=== PATIENT | female | born 1945 | race Caucasian/White ===

== ENCOUNTER 2018-03-13 11:03 | Emergency (ER) | payer MEDICARE ==
[2018-03-13 11:13] VITALS: TEMP 98.2
[2018-03-13] MEDS ORDERED: SODIUM CHLORIDE 0.9% 1,000 ML IV STA ×2 (11:59)
[2018-03-13] MEDS ORDERED: IPRATROPIUM-ALBUTEROL 3 ML NEB INHALATION STA (12:00)
--- NOTE | 2018-03-13 12:35 | ED ---
Recheck HPI - General Chief Complaint: Recheck/Abnormal Lab/Rx Stated Complaint: High B/P Time Seen by Provider: 03/13/18 11:34 Source: patient, RN notes reviewed, old records reviewed Mode of arrival: wheelchair Limitations: no limitations - History of Present Illness Initial Comments: 73-year-old female presents emergency department sent from primary care physician. Apparently Patient was having an elevated blood pressure on her first visit to new primary care physician. Asians blood pressure is 180/100 at this time. Apparently the office it was 220/120. Patient reports that she has had never seen a primary care physician in the past few years. She reports she does have a history of COPD and is a smoker. She is treated for COPD exacerbation with steroids and antibiotics early last week. She thought she was getting somewhat better. Patient states that she's had no other abnormal symptoms including nausea vomiting. Patient denies any recent fever, chills, shortness of breath, chest pain, back pain, abdominal pain, nausea vomiting, numbness or tingling, dysuria or hematuria, constipation or diarrhea, headaches or visual changes, or any other current symptoms - Related Data Home Medications Medication Instructions Recorded Confirmed Albuterol Inhaler [Ventolin Hfa 1 - 2 puff INHALATION RT-Q6H PRN 03/13/18 Inhaler] Albuterol Nebulized [Ventolin 2.5 mg INHALATION RT-Q6H PRN 03/13/18 03/13/18 Nebulized] Glycopyrrolate/Formoterol Fum 2 puff INHALATION RT-BID 03/13/18 03/13/18 [Bevespi Aerosphere Inhaler] diphenhydrAMINE [Benadryl] 25 mg PO QID PRN 03/13/18 03/13/18 Previous Rx's Medication Instructions Recorded amLODIPine [Norvasc] 5 mg PO DAILY #10 tab 03/13/18 Allergies Allergy/AdvReac Type Severity Reaction Status Date / Time cefuroxime [From Ceftin] AdvReac Nausea & Verified 03/13/18 11:26 Vomiting Review of Systems ROS Statement: Those systems with pertinent positive or pertinent negative responses have been documented in the HPI. ROS Other: All systems not noted in ROS Statement are negative. Past Medical History Past Medical History: No Reported History History of Any Multi-Drug Resistant Organisms: None Reported Past Surgical History: Tonsillectomy Past Psychological History: No Psychological Hx Reported Smoking Status: Current every day smoker Past Alcohol Use History: None Reported Past Drug Use History: None Reported General Exam - General Exam Comments Initial Comments: This is a 73-year-old female. Alert and oriented. No significant distress. Limitations: no limitations General appearance: alert, in no apparent distress Head exam: Present: atraumatic, normocephalic, normal inspection Eye exam: Present: normal appearance, PERRL, EOMI. Absent: scleral icterus, conjunctival injection, periorbital swelling ENT exam: Present: normal exam, mucous membranes moist Neck exam: Present: normal inspection. Absent: tenderness, meningismus, lymphadenopathy Respiratory exam: Present: wheezes (Patient has some bilateral wheezing.). Absent: normal lung sounds bilaterally, respiratory distress, rales, rhonchi, stridor Cardiovascular Exam: Present: regular rate, normal rhythm, normal heart sounds. Absent: systolic murmur, diastolic murmur, rubs, gallop, clicks GI/Abdominal exam: Present: soft, normal bowel sounds. Absent: distended, tenderness, guarding, rebound, rigid Extremities exam: Present: normal inspection, full ROM, normal capillary refill. Absent: tenderness, pedal edema, joint swelling, calf tenderness Back exam: Present: normal inspection Neurological exam: Present: alert, oriented X3, CN II-XII intact Psychiatric exam: Present: normal affect, normal mood Skin exam: Present: warm, dry, intact, normal color. Absent: rash Course Vital Signs 03/13/18 03/13/18 03/13/18 11:06 12:22 12:30 Temperature 98.2 F Pulse Rate 89 78 76 Respiratory 20 Rate Blood Pressure 187/100 O2 Sat by Pulse 95 Oximetry 03/13/18 03/13/18 03/13/18 12:39 13:01 13:38 Temperature Pulse Rate 78 67 Respiratory 22 16 Rate Blood Pressure 220/96 160/79 O2 Sat by Pulse 95 98 Oximetry Medical Decision Making - Medical Decision Making 73-year-old female presents emergency department today with chief complaint of episodes of high blood pressure. She was seen by her primary care physician for the first time and sent here for further evaluation. At this time patient' s labwork was reviewed and unremarkable. EKG shows no significant changes. Patient's troponin is negative. Kidney functions within normal limits. Patient 's chest x-ray shows no acute changes. Patient will this time will be discharged with close follow-up with primary care physician. Started on low- dose Norvasc. She reports pressure will respond well to 20 mg of labetalol. Patient states she feels well and like to be discharged home at this time. Discussed return parameters and to monitor her blood pressure throughout the week. - Lab Data Result diagrams: 03/13/18 12:20 03/13/18 12:20 Lab Results 03/13/18 03/13/18 03/13/18 Range/Units 12:20 12:20 12:20 WBC 10.7 H (3.8-10.6) k/uL RBC 5.17 (3.80-5.40) m/uL Hgb 15.1 (11.4-16.0) gm/dL Hct 45.7 (34.0-46.0) % MCV 88.3 (80.0-100.0) fL MCH 29.2 (25.0-35.0) pg MCHC 33.1 (31.0-37.0) g/dL RDW 14.0 (11.5-15.5) % Plt Count 385 (150-450) k/uL Neutrophils % 78 % Lymphocytes % 14 % Monocytes % 4 % Eosinophils % 2 % Basophils % 0 % Neutrophils # 8.3 H (1.3-7.7) k/uL Lymphocytes # 1.5 (1.0-4.8) k/uL Monocytes # 0.5 (0-1.0) k/uL Eosinophils # 0.2 (0-0.7) k/uL Basophils # 0.0 (0-0.2) k/uL PT (9.0-12.0) sec INR (<1.2) APTT (22.0-30.0) sec Sodium 139 (137-145) mmol/L Potassium 4.6 (3.5-5.1) mmol/L Chloride 106 (98-107) mmol/L Carbon Dioxide 24 (22-30) mmol/L Anion Gap 9 mmol/L BUN 17 (7-17) mg/dL Creatinine 1.00 (0.52-1.04) mg/dL Est GFR (CKD-EPI)AfAm 65 (>60 ml/min/1.73 sqM) Est GFR (CKD-EPI)NonAf 56 (>60 ml/min/1.73 sqM) Glucose 104 H (74-99) mg/dL Calcium 9.6 (8.4-10.2) mg/dL Magnesium 2.3 (1.6-2.3) mg/dL Total Bilirubin 0.5 (0.2-1.3) mg/dL AST 18 (14-36) U/L ALT 30 (9-52) U/L Alkaline Phosphatase 72 (38-126) U/L Total Creatine Kinase 69 (30-135) U/L CK-MB (CK-2) 0.8 (0.0-2.4) ng/mL CK-MB (CK-2) Rel Index 1.2 Troponin I <0.012 (0.000-0.034) ng/mL Total Protein 6.7 (6.3-8.2) g/dL Albumin 4.1 (3.5-5.0) g/dL 03/13/18 Range/Units 12:20 WBC (3.8-10.6) k/uL RBC (3.80-5.40) m/uL Hgb (11.4-16.0) gm/dL Hct (34.0-46.0) % MCV (80.0-100.0) fL MCH (25.0-35.0) pg MCHC (31.0-37.0) g/dL RDW (11.5-15.5) % Plt Count (150-450) k/uL Neutrophils % % Lymphocytes % % Monocytes % % Eosinophils % % Basophils % % Neutrophils # (1.3-7.7) k/uL Lymphocytes # (1.0-4.8) k/uL Monocytes # (0-1.0) k/uL Eosinophils # (0-0.7) k/uL Basophils # (0-0.2) k/uL PT 9.6 (9.0-12.0) sec INR 1.0 (<1.2) APTT 24.9 (22.0-30.0) sec Sodium (137-145) mmol/L Potassium (3.5-5.1) mmol/L Chloride (98-107) mmol/L Carbon Dioxide (22-30) mmol/L Anion Gap mmol/L BUN (7-17) mg/dL Creatinine (0.52-1.04) mg/dL Est GFR (CKD-EPI)AfAm (>60 ml/min/1.73 sqM) Est GFR (CKD-EPI)NonAf (>60 ml/min/1.73 sqM) Glucose (74-99) mg/dL Calcium (8.4-10.2) mg/dL Magnesium (1.6-2.3) mg/dL Total Bilirubin (0.2-1.3) mg/dL AST (14-36) U/L ALT (9-52) U/L Alkaline Phosphatase (38-126) U/L Total Creatine Kinase (30-135) U/L CK-MB (CK-2) (0.0-2.4) ng/mL CK-MB (CK-2) Rel Index Troponin I (0.000-0.034) ng/mL Total Protein (6.3-8.2) g/dL Albumin (3.5-5.0) g/dL 03/13/18 13:25 EKG shows sinus rhythm with occasional PVCs. Otherwise normal EKG. Ventricularly of 86 bpm. CA interval is 136 most seconds. Curious duration 78 ms. QT QTc is 352/421 ms. - Radiology Data Radiology results: report reviewed Chest x-rays negative for any acute cardiopulmonary process. Disposition Clinical Impression: Hypertension Disposition: HOME SELF-CARE Condition: Good Instructions: Hypertension (ED) Additional Instructions: Patient is to follow-up with primary care physician within the next week. Take the medication daily as prescribed. Patient should return to emergency department if any alarming signs or symptoms occur. Prescriptions: amLODIPine [Norvasc] 5 mg PO DAILY #10 tab Is patient prescribed a controlled substance at d/c from ED?: No When asked, does pt state using other controlled substances?: No If prescribed controlled substance>3 days was MAPS reviewed?: No If opioid is for acute pain is fill amount 7 days or less?: No If Rx opioid, was Start Talking consent form obtained?: No Referrals: Yakov Thakkar MD [Primary Care Provider] - 1-2 days Time of Disposition: 13:55
[2018-03-13 12:45] LABS: Basophils % (A) 0 %; Eosinophils # (A) 0.2 k/uL (0-0.7); Eosinophils % (A) 2 %; HCT 45.7 % (34.0-46.0); HGB 15.1 gm/dL (11.4-16.0); Lymphocytes # (A) 1.5 k/uL (1.0-4.8); Lymphocytes % (A) 14 %; MCH 29.2 pg (25.0-35.0); MCHC 33.1 g/dL (31.0-37.0); MCV 88.3 fL (80.0-100.0); Mean Platelet Volume 6.2; Monocytes # (A) 0.5 k/uL (0-1.0); Monocytes % (A) 4 %; Neutrophils # (A) 8.3 k/uL (1.3-7.7); Neutrophils % (A) 78 %; Platelet Count 385 k/uL (150-450); RBC 5.17 m/uL (3.80-5.40); WBC 10.7 k/uL (3.8-10.6)
--- NOTE | 2018-03-13 12:49 | XR ---
EXAMINATION TYPE: XR chest 2V DATE OF EXAM: 03/13/2018 COMPARISON: Prior chest 06/14/2011 HISTORY: Chest pain, hypertension TECHNIQUE: Frontal and lateral views of the chest are obtained. FINDINGS: There is no focal air space opacity, pleural effusion, or pneumothorax seen. The cardiac silhouette size is within normal limits. The osseous structures are intact. There are overlying car diac leads. Prominent lung lines compatible with patient's emphysema. IMPRESSION: No acute cardiopulmonary process.
[2018-03-13 13:00] LABS: Albumin 4.1 g/dL (3.5-5.0); Calcium 9.6 mg/dL (8.4-10.2); Magnesium 2.3 mg/dL (1.6-2.3); Potassium 4.6 mmol/L (3.5-5.1); Total Bilirubin 0.5 mg/dL (0.2-1.3); Total Protein 6.7 g/dL (6.3-8.2)
[2018-03-13 13:06] LABS: Partial Thromboplastin Time 24.9 sec (22.0-30.0); Prothrombin Time 9.6 sec (9.0-12.0)
[2018-03-13 13:08] LABS: Creatine Kinase 69 U/L (30-135)
[2018-03-13] MEDS ORDERED: LABETALOL 5 MG/ML VIAL MDV IVP STA (13:11)
[2018-03-13 13:20] LABS: Creatine Kinase MB 0.8 ng/mL (0.0-2.4); Troponin I <0.012 ng/mL (0.000-0.034)
[2018-03-13 13:39] VITALS: BP 160/79; PULSE 67; RESP 16
== END 2018-03-13 14:12 | disposition home or self-care (01) ==
LOC: EC 11:03
DX: I10 Essential (primary) hypertension (principal); J44.9 Chronic obstructive pulmonary disease, unspecified; F17.200 Nicotine dependence, unspecified, uncomplicated; Z79.51 Long term (current) use of inhaled steroids; Z88.1 Allergy status to other antibiotic agents
CPT/HCPCS: 36415; 71046; 80053; 82550; 82553; 83735; 83880; 84484; 85025; 85610; 85730; 93005; 94640; 96361; 96374; 99284

== ENCOUNTER 2019-07-20 05:40 | Inpatient (IN) | payer MEDICARE, OTHER ==
[2019-07-20] MEDS ORDERED: IPRATROPIUM-ALBUTEROL 3 ML NEB INHALATION STA (05:53)
--- NOTE | 2019-07-20 06:01 | ED ---
SOB HPI - General Chief Complaint: Shortness of Breath Stated Complaint: COMFORT Time Seen by Provider: 07/20/19 05:53 Source: patient, EMS, RN notes reviewed Mode of arrival: EMS Limitations: no limitations - History of Present Illness Initial Comments: This is a 74-year-old female presents emergency from via EMS chief complaint shortness of breath. Patient states that she's had increased shortness breath with cough congestion over the last 1 week. Patient is a daily smoker with a history of COPD. Patient denies any chest pain. Patient states that she's been using her rescue inhaler with minimal relief she was given 1 DuoNeb treatment by EMS and states that this did help minimally. She states that she is having difficulty walking short distances with out pain extremity short of breath and also states that she cannot complete a full sentence at this time. 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 Patient denies any known fever but complains of chills. Patient is went headache, dizziness, nausea, vomiting, diarrhea constipation. Patient has no history of CHF denies pedal edema. - Related Data Home Medications Medication Instructions Recorded Confirmed Albuterol Inhaler [Ventolin Hfa 1 - 2 puff INHALATION RT-Q6H PRN 03/13/18 03/13/18 Inhaler] Albuterol Nebulized [Ventolin 2.5 mg INHALATION RT-Q6H PRN 03/13/18 03/13/18 Nebulized] Glycopyrrolate/Formoterol Fum 2 puff INHALATION RT-BID 03/13/18 03/13/18 [Bevespi Aerosphere Inhaler] diphenhydrAMINE [Benadryl] 25 mg PO QID PRN 03/13/18 03/13/18 Previous Rx's Medication Instructions Recorded amLODIPine [Norvasc] 5 mg PO DAILY #10 tab 03/13/18 Allergies Allergy/AdvReac Type Severity Reaction Status Date / Time cefuroxime [From Ceftin] AdvReac Nausea & Verified 03/13/18 11:26 Vomiting methylprednisolone AdvReac Hallucinati Verified 07/20/19 05:50 [From Solu-Medrol] ons Review of Systems ROS Statement: Those systems with pertinent positive or pertinent negative responses have been documented in the HPI. ROS Other: All systems not noted in ROS Statement are negative. Past Medical History Past Medical History: COPD History of Any Multi-Drug Resistant Organisms: None Reported Past Surgical History: No Surgical Hx Reported Past Psychological History: No Psychological Hx Reported Smoking Status: Current every day smoker Past Alcohol Use History: None Reported Past Drug Use History: None Reported General Exam Limitations: no limitations General appearance: alert, in no apparent distress Head exam: Present: atraumatic, normocephalic, normal inspection Eye exam: Present: normal appearance, PERRL, EOMI. Absent: scleral icterus, conjunctival injection, periorbital swelling ENT exam: Present: normal exam, normal oropharynx, mucous membranes moist, TM's normal bilaterally, normal external ear exam Neck exam: Present: normal inspection. Absent: tenderness, meningismus, lymphad enopathy Respiratory exam: Present: respiratory distress (Moderate), wheezes, decreased breath sounds. Absent: normal lung sounds bilaterally, rales, rhonchi, stridor Cardiovascular Exam: Present: regular rate, normal rhythm, normal heart sounds. Absent: systolic murmur, diastolic murmur, rubs, gallop, clicks GI/Abdominal exam: Present: soft, normal bowel sounds. Absent: distended, tenderness, guarding, rebound, rigid Extremities exam: Absent: pedal edema Neurological exam: Present: alert, oriented X3 Skin exam: Present: warm, dry, intact, normal color. Absent: rash Course Vital Signs 07/20/19 07/20/19 07/20/19 05:47 06:02 06:14 Temperature 98 F Pulse Rate 100 96 97 Respiratory 18 Rate Blood Pressure 169/68 O2 Sat by Pulse 94 L Oximetry Medical Decision Making - Medical Decision Making Patient has received multiple treatments with minimal improvement. Labs show mild leukocytosis, elevated creatinine. Patient's chest x-ray consistent with COPD. Patient be admitted for COPD exacerbation. Patient was not given IV steroids that she refuses. - Lab Data Result diagrams: 07/20/19 06:20 07/20/19 06:20 Lab Results 07/20/19 07/20/19 07/20/19 Range/Units 06:20 06:20 06:20 WBC 11.2 H (3.8-10.6) k/uL RBC 4.28 (3.80-5.40) m/uL Hgb 12.6 (11.4-16.0) gm/dL Hct 39.2 (34.0-46.0) % MCV 91.4 (80.0-100.0) fL MCH 29.3 (25.0-35.0) pg MCHC 32.1 (31.0-37.0) g/dL RDW 14.2 (11.5-15.5) % Plt Count 381 (150-450) k/uL Neutrophils % 87 % Lymphocytes % 6 % Monocytes % 5 % Eosinophils % 1 % Basophils % 1 % Neutrophils # 9.7 H (1.3-7.7) k/uL Lymphocytes # 0.7 L (1.0-4.8) k/uL Monocytes # 0.5 (0-1.0) k/uL Eosinophils # 0.1 (0-0.7) k/uL Basophils # 0.1 (0-0.2) k/uL Hypochromasia Slight PT 9.9 (9.0-12.0) sec INR 0.9 (<1.2) APTT 23.3 (22.0-30.0) sec Sodium 141 (137-145) mmol/L Potassium 4.2 (3.5-5.1) mmol/L Chloride 104 (98-107) mmol/L Carbon Dioxide 25 (22-30) mmol/L Anion Gap 12 mmol/L BUN 13 (7-17) mg/dL Creatinine 1.13 H (0.52-1.04) mg/dL Est GFR (CKD-EPI)AfAm 56 (>60 ml/min/1.73 sqM) Est GFR (CKD-EPI)NonAf 48 (>60 ml/min/1.73 sqM) Glucose 129 H (74-99) mg/dL Calcium 9.5 (8.4-10.2) mg/dL Magnesium 2.3 (1.6-2.3) mg/dL Total Bilirubin 0.6 (0.2-1.3) mg/dL AST 26 (14-36) U/L ALT 31 (9-52) U/L Alkaline Phosphatase 76 (38-126) U/L Troponin I (0.000-0.034) ng/mL NT-Pro-B Natriuret Pep pg/mL Total Protein 6.9 (6.3-8.2) g/dL Albumin 3.9 (3.5-5.0) g/dL 07/20/19 07/20/19 Range/Units 06:20 06:20 WBC (3.8-10.6) k/uL RBC (3.80-5.40) m/uL Hgb (11.4-16.0) gm/dL Hct (34.0-46.0) % MCV (80.0-100.0) fL MCH (25.0-35.0) pg MCHC (31.0-37.0) g/dL RDW (11.5-15.5) % Plt Count (150-450) k/uL Neutrophils % % Lymphocytes % % Monocytes % % Eosinophils % % Basophils % % Neutrophils # (1.3-7.7) k/uL Lymphocytes # (1.0-4.8) k/uL Monocytes # (0-1.0) k/uL Eosinophils # (0-0.7) k/uL Basophils # (0-0.2) k/uL Hypochromasia PT (9.0-12.0) sec INR (<1.2) APTT (22.0-30.0) sec Sodium (137-145) mmol/L Potassium (3.5-5.1) mmol/L Chloride (98-107) mmol/L Carbon Dioxide (22-30) mmol/L Anion Gap mmol/L BUN (7-17) mg/dL Creatinine (0.52-1.04) mg/dL Est GFR (CKD-EPI)AfAm (>60 ml/min/1.73 sqM) Est GFR (CKD-EPI)NonAf (>60 ml/min/1.73 sqM) Glucose (74-99) mg/dL Calcium (8.4-10.2) mg/dL Magnesium (1.6-2.3) mg/dL Total Bilirubin (0.2-1.3) mg/dL AST (14-36) U/L ALT (9-52) U/L Alkaline Phosphatase (38-126) U/L Troponin I 0.016 (0.000-0.034) ng/mL NT-Pro-B Natriuret Pep 756 pg/mL Total Protein (6.3-8.2) g/dL Albumin (3.5-5.0) g/dL - EKG Data -: EKG Interpreted by Me EKG Comments: EKG performed at 6:27 normal sinus rhythm rate of 93 FL 158 QRS 82 QT/QTC 336/417 Disposition Clinical Impression: COPD exacerbation Disposition: ADMITTED IP TO THIS HOSP Condition: Fair Referrals: None,Stated [REFERRING] - 1-2 days
[2019-07-20 06:31] LABS: Basophils # (A) 0.1 k/uL (0-0.2); Basophils % (A) 1 %; Eosinophils # (A) 0.1 k/uL (0-0.7); Eosinophils % (A) 1 %; HCT 39.2 % (34.0-46.0); HGB 12.6 gm/dL (11.4-16.0); Hypochromasia Slight; Lymphocytes # (A) 0.7 k/uL (1.0-4.8); Lymphocytes % (A) 6 %; MCH 29.3 pg (25.0-35.0); MCHC 32.1 g/dL (31.0-37.0); MCV 91.4 fL (80.0-100.0); Mean Platelet Volume 5.3; Monocytes # (A) 0.5 k/uL (0-1.0); Monocytes % (A) 5 %; Neutrophils # (A) 9.7 k/uL (1.3-7.7); Neutrophils % (A) 87 %; Platelet Count 381 k/uL (150-450); RBC 4.28 m/uL (3.80-5.40); RDW 14.2 % (11.5-15.5); WBC 11.2 k/uL (3.8-10.6)
[2019-07-20 06:40] LABS: INR 0.9 (<1.2); Partial Thromboplastin Time 23.3 sec (22.0-30.0); Prothrombin Time 9.9 sec (9.0-12.0)
[2019-07-20 06:43] LABS: Albumin 3.9 g/dL (3.5-5.0); Calcium 9.5 mg/dL (8.4-10.2); Magnesium 2.3 mg/dL (1.6-2.3); Potassium 4.2 mmol/L (3.5-5.1); Total Bilirubin 0.6 mg/dL (0.2-1.3); Total Protein 6.9 g/dL (6.3-8.2)
[2019-07-20] MEDS ORDERED: ACETAMINOPHEN TAB 325 MG TAB PO PRN (07:28)
[2019-07-20] MEDS ORDERED: NALOXONE 0.4 MG/ML 1 ML VIAL IV PRN (07:28)
[2019-07-20] MEDS ORDERED: ALBUTEROL NEBULIZED 2.5 MG/3 ML INHALATION STA (07:29)
[2019-07-20] MEDS ORDERED: ALBUTEROL NEBULIZED 2.5 MG/3 ML INHALATION PRN (07:30)
--- NOTE | 2019-07-20 07:31 | XR ---
EXAM: XR Chest, 2 Views CLINICAL HISTORY: difficulty breathing TECHNIQUE: Frontal and lateral views of the chest. COMPARISON: August 14, 2018. FINDINGS: Lungs: Increased prominence of pulmonary vasculature, new since prior exam. Hyperinflated lungs. No focal consolidative process. Pleural space: Unremarkable. No pleural effusions. No pneumothorax. Heart: Cardiac silhouette is within normal limits with Mediastinum: Unremarkable. Bones/joints: Unremarkable. IMPRESSION: Suspected vascular congestion/developing failure. COPD changes. No focal consolidative process or pleural effusions.
[2019-07-20 08:50] VITALS: BMI 36.6
[2019-07-20] MEDS ORDERED: LEVOFLOXACIN 500 MG TAB PO SCH (09:00)
[2019-07-20] MEDS: IPRATROPIUM-ALBUTEROL 3 ML NEB INHALATION SCH ×4 (09:30→20:29)
[2019-07-20] MEDS: ESCITALOPRAM 20 MG TAB PO SCH (10:07)
[2019-07-20] MEDS: amLODIPine 5 MG TAB PO SCH ×2 (10:08→19:57)
[2019-07-20] MEDS: ALPRAZolam 0.25 MG TAB PO PRN ×2 (10:08→19:57)
[2019-07-20] MEDS: BUDESONIDE 1 MG/2 ML NEBU INHALATION SCH ×2 (11:00→20:29)
[2019-07-20] MEDS: FORMOTEROL FUMARATE 20 MCG/2 ML NEBU INHALATION SCH ×2 (11:00→20:29)
[2019-07-20] MEDS: HEPARIN SODIUM,PORCINE 5,000 UNIT/ML 1 ML VIAL SQ SCH ×2 (11:35→19:58)
--- NOTE | 2019-07-20 11:53 | P.CNPUL ---
History of Present Illness Consult date: 07/20/19 Reason for consult: dyspnea, COPD History of present illness: 74-year-old female patient with known history of advanced COPD with an FEV1 of 35% of predicted with been followed up in our office. She has severe COPD. Her PFT also showed hyperinflation and impaired diffusion capacity. She is a chronic smoker. She is also suspected obstructive sleep apnea. Other comorbidities include obesity, diabetes mellitus, and hypertension. She has b een maintained on Bevespi on outpatient basis along with albuterol HFA and albuterol solution on a when necessary basis. She came into the hospital complaining of worsening shortness of breath and cough and congestion over the past 1 week. She denied having any chest pain. No fever. No chills. Chest x- ray shows no evidence of any acute pneumonia. The labs showed a white cell count of 10.7 at time of admission. Renal function was within normal. Cardiac enzymes are negative. Troponin was nonelevated. BNP level was within normal limits. She has no CHF. No pedal edema. She was having some headaches and chronic dizziness. Review of Systems Constitutional: Reports weakness Eyes: denies as per HPI, denies blurred vision, denies bulging eye, denies decreased vision, denies diplopia, denies discharge, denies dry eye, denies irritation, denies itching, denies pain, denies photophobia, denies loss of peripheral vision, denies loss of vision, denies tunnel vision/blind spots Ears: deny: decreased hearing, ear discharge, earache, tinnitus Ears, nose, mouth and throat: Denies headache, Denies sore throat Cardiovascular: Reports decreased exercise tolerance, Reports dyspnea on exertion Respiratory: Reports cough, Reports dyspnea, Reports wheezing Genitourinary: Denies dysuria, Denies hematuria Menstruation: Reports as per HPI Musculoskeletal: Reports as per HPI Musculoskeletal: absent: ankle pain, ankle stiffness, ankle swelling Integumentary: Reports as per HPI Neurological: Reports as per HPI, Reports weakness Psychiatric: Reports as per HPI Endocrine: Reports fatigue Hematologic/Lymphatic: Reports as per HPI Allergic/Immunologic: Reports as per HPI Past Medical History Past Medical History: COPD, Hypertension Additional Past Medical History / Comment(s): Chronic low back pain, steroid psy chosis History of Any Multi-Drug Resistant Organisms: None Reported Past Surgical History: Tonsillectomy Past Anesthesia/Blood Transfusion Reactions: No Reported Reaction Smoking Status: Current every day smoker (2 ppd and she has been smoking 56 years and she use to workj in fast food) - Past Family History Father Additional Family Medical History / Comment(s): Father was an alcoholic Mother Family Medical History: Congestive Heart Failure (CHF) Medications and Allergies Home Medications Medication Instructions Recorded Confirmed Type Albuterol Inhaler [Ventolin Hfa 1 - 2 puff INHALATION RT-Q6H PRN 03/13/18 07/20/19 History Inhaler] Budesonide/Formoterol Fumarate 2 puff INHALATION RT-BID 07/20/19 07/20/19 History [Symbicort 160-4.5 Mcg Inhaler] Escitalopram [Lexapro] 20 mg PO DAILY 07/20/19 07/20/19 History Ipratropium-Albuterol Nebulize 3 ml INHALATION RT-QID 07/20/19 07/20/19 History [Duoneb 0.5 mg-3 mg/3 ml Soln] amLODIPine [Norvasc] 5 mg PO BID 07/20/19 07/20/19 History Allergies Allergy/AdvReac Type Severity Reaction Status Date / Time cefuroxime [From Ceftin] AdvReac Nausea & Verified 07/20/19 07:39 Vomiting methylprednisolone AdvReac Hallucinati Verified 07/20/19 07:39 [From Solu-Medrol] ons prednisone AdvReac SHAKING Verified 07/20/19 07:39 Physical Exam Vitals: Vital Signs Temp Pulse Pulse Resp BP BP Pulse Ox 07/20/19 10:25 89 32 H 169/71 94 L 07/20/19 09:41 92 07/20/19 09:31 92 07/20/19 09:15 98.5 F 105 H 36 H 181/77 92 L 07/20/19 08:12 98.1 F 92 18 168/83 97 07/20/19 08:05 100 07/20/19 07:49 93 07/20/19 07:45 93 L 07/20/19 07:05 93 18 149/74 97 07/20/19 06:14 97 07/20/19 06:02 96 07/20/19 05:47 98 F 100 18 169/68 94 L Intake and Output 07/19/19 07/20/1907/20/19 22:59 06:59 14:59 Other: Weight 90.718 kg Gen. appearance the patient is bronchospastic short of breath and wheezy and she is having shortness of breath even at rest. She is not using excessive muscle breathing. She has a congested cough. Unable to bring up any sputum. Head exam was generally normal. There was no scleral icterus or corneal arcus. Mucous membranes were moist. Neck was supple and without jugular venous distension, thyromegaly, or carotid bruits. Carotids were easily palpable bilaterally. There was no adenopathy. Lungs sounds are markedly diminished bilaterally especially in the mid in the lower lung [place] and there is prolongation of exhalation phase of breathing and diffuse expiratory wheezes throughout the lung [place] bilaterally. Cardiac exam revealed the PMI to be normally situated and sized. The rhythm was regular and no extrasystoles were noted during several minutes of auscultation. The first and second heart sounds were normal and physiologic splitting of the second heart sound was noted. There were no murmurs, rubs, clicks, or gallops. Overall the heart sounds are distant. Abdominal exam revealed normal bowel sounds. The abdomen was soft, non-tender, and without masses, organomegaly, or appreciable enlargement of the abdominal aorta. Examination of the extremities revealed easily palpable radial, femoral and pedal pulses. There was no cyanosis, clubbing or edema. Examination of the skin revealed no evidence of significant rashes, suspicious appearing nevi or other concerning lesions. Neurologically she is awake and alert and there is no focal neurological deficits and she is communicating. She looks a bit anxious. Results - Laboratory Findings CBC and BMP: 07/20/19 06:20 07/20/19 06:20 PT/INR, D-dimer PT 9.9 sec (9.0-12.0) 07/20/19 06:20 INR 0.9 (<1.2) 07/20/19 06:20 Abnormal lab findings: Abnormal Labs 07/20/19 07/20/19 06:20 06:20 WBC 11.2 H Neutrophils # 9.7 H Lymphocytes # 0.7 L Creatinine 1.13 H Glucose 129 H - Diagnostic Findings Chest x-ray: image reviewed Assessment and Plan Plan: 1 acute COPD exacerbation with secondary shortness of breath. The patient has symptoms of tracheal bronchitis. No evidence of any acute pneumonia on today's chest x-ray 2 advanced COPD with an FEV1 of 36% of predicted 3 chronic smoker and the patient smoked more than 2 pack of cigarettes a day. 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 5 obesity with a BMI of 36 6 shortness of breath and a congested cough secondary to above 7 hypertension Plan We'll put the patient on DuoNeb nebulized treatments around the clock every 4 hours when necessary. We'll put the patient on Pulmicort and Perforomist nebulized treatment twice daily and discontinue the Symbicort for now. Lower dose IV Solu-Medrol 40 mg every 6 hours with close attention hours and increased anxiety although altered mentation or any symptoms of psychosis. Levaquin as an empiric antibiotic coverage. Keep oxygen at 3 L for now. Encourage smoking cessation smoking cessation counseling was done. Nicotine patch. DVT prop hylaxis with subcu heparin. We'll continue to follow.
[2019-07-20] MEDS ORDERED: methylPREDNISolone SOD SUCCI 40 MG/ML 1 ML VIAL IV SCH (12:00)
[2019-07-20] MEDS ORDERED: methylPREDNISolone SOD SUCCI 125 MG/2 ML VIAL IV SCH (12:00)
[2019-07-20] MEDS: NICOTINE 21MG/24HR PATCH TRANSDERM SCH (12:10)
--- NOTE | 2019-07-20 12:41 | HP ---
HISTORY AND PHYSICAL DATE OF SERVICE: 07/20/2019 CHIEF COMPLAINT: Shortness of breath. HISTORY OF PRESENT ILLNESS: This 74-year-old woman with a past medical history of multiple medical problems including COPD, hypertension, history of chronic back pain, history of anxiety and depression being followed by Dr. Yarelis Gordon and Dr. Trujillo in the outpatient setting complaining of shortness of breath for the last couple days. The patient continues to smoke and was complaining of increased shortness of breath and some chest tightness, cough, sputum, congestion. The patient came to [facility] and admitted for further evaluation and treatment. Chest x-ray showed no evidence of pneumonia. Pulmonary consultation is underway at this time. No chest pain or palpitation. No fever. No rigors. PAST MEDICAL HISTORY: History of COPD, hypertension, chronic low back pain, anxiety, depression. MEDICATIONS: Medications prior to admission: 1. Norvasc 5 mg p.o. b.i.d. 2. DuoNeb q.i.d. 3. Lexapro 20 mg daily. 4. Symbicort 160/4.5 two puffs b.i.d. 5. Ventolin HFA 1-2 puffs q.6 p.r.n. ALLERGIES: Allergies are CEFTIN, SOLU-MEDROL and PREDNISONE. FAMILY HISTORY: History of CHF and alcoholism in the father. SOCIAL HISTORY: History of smoking, and ongoing. No history of alcohol intake. REVIEW OF SYSTEMS: ENT: No diminished hearing or diminished vision. CARDIOVASCULAR SYSTEM: As mentioned earlier. RESPIRATORY: As mentioned earlier. GI: No nausea. : No dysuria. NERVOUS SYSTEM: No numbness or weakness. ALLERGY/IMMUNOLOGY: No asthma or hayfever. MUSCULOSKELETAL: As mentioned earlier. HEMATOLOGY/ONCOLOGY: No history of ANEMIA. ENDOCRINE: No history of diabetes or hypothyroidism. CONSTITUTIONAL: As mentioned earlier. DERMATOLOGY: Negative. RHEUMATOLOGY: Negative. PSYCHIATRY: As mentioned earlier. PHYSICAL EXAMINATION: The patient is alert and oriented x3. Pulse is 89. Blood pressure 169/71, respiration 32, temperature is normal, pulse ox 94% on 4 L HEENT: Conjunctivae normal. NECK: No jugular venous distention. CARDIOVASCULAR: S1, S2 muffled. RESPIRATORY: Breath sounds diminished at the bases. Scattered rhonchi and crackles. Expiratory wheezing also present. ABDOMEN: Soft, nontender. No mass palpable. LEGS: No edema, no swelling. NERVOUS SYSTEM: Higher function as mentioned earlier. Moves all 4 limbs. No focal motor or sensory deficits. LYMPHATICS: No lymphadenopathy of the neck, axillae or groin. SKIN: No ulcer, rash or bleeding. JOINTS: No active deforming arthropathy. Accessory muscles of respiration acting. Patient had significant difficulties in breathing also and even completing sentences. LABS: WBC 11.2, hemoglobin 12.6 and creatinine 1.13. Other labs are noted. ASSESSMENT: 1. Chronic obstructive pulmonary disease acute exacerbation with acute purulent tracheobronchitis. 2. Continued ongoing nicotine dependence. 3. Hypertension. 4. Chronic low back pain. 5. History of steroid psychosis. 6. Anxiety, depression. 7. Obesity with body mass index of 36.6. RECOMMENDATIONS AND DISCUSSION: In this 74-year-old woman who presented with multiple complex medical issues, we will monitor the patient closely. Continue the current medications and symptomatic treatment. We will optimize the bronchodilator treatment, empiric antibiotics, steroids, monitor blood sugars closely. Repeat labs. DVT prophylaxis and Protonix. Will follow the patient closely. A copy of this forwarded to Dr. Gordon who is the primary physician in the outpatient. MMODL / IJN: [id number] /
[2019-07-21] MEDS ORDERED: HYDROcodone/APAP 5-325MG 1 EACH TAB ONE (00:20)
[2019-07-21] MEDS ORDERED: IPRATROPIUM-ALBUTEROL 3 ML NEB ONE ×2 (00:20)
[2019-07-21] MEDS ORDERED: HYDROmorphone 2 MG TAB ONE (03:54)
[2019-07-21] MEDS ORDERED: ALPRAZolam 0.5 MG TAB ONE (03:54)
[2019-07-21] MEDS: FORMOTEROL FUMARATE 20 MCG/2 ML NEBU INHALATION SCH ×2 (06:51→21:23)
[2019-07-21] MEDS: BUDESONIDE 1 MG/2 ML NEBU INHALATION SCH ×2 (06:51→21:23)
[2019-07-21] MEDS: IPRATROPIUM-ALBUTEROL 3 ML NEB INHALATION SCH ×4 (06:51→21:23)
[2019-07-21 07:15] LABS: Glucose,Whole Blood 107 mg/dL (75-99)
[2019-07-21] MEDS: LEVOFLOXACIN 250 MG TAB PO SCH (08:05)
[2019-07-21] MEDS: HEPARIN SODIUM,PORCINE 5,000 UNIT/ML 1 ML VIAL SQ SCH ×2 (08:05→21:53)
[2019-07-21] MEDS: PANTOPRAZOLE 40 MG TABLET PO SCH (08:05)
[2019-07-21] MEDS: NICOTINE 21MG/24HR PATCH TRANSDERM SCH (08:05)
[2019-07-21] MEDS: ESCITALOPRAM 20 MG TAB PO SCH (08:05)
[2019-07-21] MEDS: amLODIPine 5 MG TAB PO SCH ×2 (08:05→21:53)
--- NOTE | 2019-07-21 11:05 | P.PN ---
Subjective Progress Note Date: 07/21/19 On today's evaluation of 07/21/2019 the patient is still bronchospastic wheezy and short of breath and she is not having any major improvement compared to yesterday. The patient declined use of steroids because of side effects and increased anxiety and insomnia. On today's evaluation she is requesting the steroids can be initiated knowing that that has been no improvement in her clinical status compared to yesterday. Objective - Vital Signs Vital signs: Vital Signs Temp 98.1 F 07/21/19 06:00 Pulse 108 H 07/21/19 07:15 Resp 24 07/21/19 06:00 BP 160/71 07/21/19 06:00 Pulse Ox 91 L 07/21/19 06:51 Intake & Output 07/20/19 07/21/19 07/21/19 18:59 06:59 18:59 Intake Total 760 440 Balance 760 440 Weight 90.718 kg Intake: Oral 760 440 Other: # Voids 1 1 - Exam Gen. appearance the patient is bronchospastic short of breath and wheezy and she is having shortness of breath even at rest. She is not using excessive muscle breathing. She has a congested cough. Unable to bring up any sputum. Head exam was generally normal. There was no scleral icterus or corneal arcus. Mucous membranes were moist. Neck was supple and without jugular venous distension, thyromegaly, or carotid bruits. Carotids were easily palpable bilaterally. There was no adenopathy. Lungs sounds are markedly diminished bilaterally especially in the mid in the lower lung [place] and there is prolongation of exhalation phase of breathing and diffuse expiratory wheezes throughout the lung [place] bilaterally. Cardiac exam revealed the PMI to be normally situated and sized. The rhythm was regular and no extrasystoles were noted during several minutes of auscultation. The first and second heart sounds were normal and physiologic splitting of the second heart sound was noted. There were no murmurs, rubs, clicks, or gallops. Overall the heart sounds are distant. Abdominal exam revealed normal bowel sounds. The abdomen was soft, non-tender, and without masses, organomegaly, or appreciable enlargement of the abdominal aorta. Examination of the extremities revealed easily palpable radial, femoral and pedal pulses. There was no cyanosis, clubbing or edema. Examination of the skin revealed no evidence of significant rashes, suspicious appearing nevi or other concerning lesions. Neurologically she is awake and alert and there is no focal neurological deficits and she is communicating. She looks a bit anxious. - Labs CBC & Chem 7: 07/20/19 06:20 07/20/19 06:20 Labs: Abnormal Lab Results - Last 24 Hours (Table) 07/21/19 Range/Units 07:01 POC Glucose (mg/dL) 107 H (75-99) mg/dL Assessment and Plan Plan: 1 acute COPD exacerbation with secondary shortness of breath. The patient has symptoms of tracheal bronchitis. No evidence of any acute pneumonia on today's chest x-ray 2 advanced COPD with an FEV1 of 36% of predicted 3 chronic smoker and the patient smoked more than 2 pack of cigarettes a day. 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 5 obesity with a BMI of 36 6 shortness of breath and a congested cough secondary to above 7 hypertension Plan Continue same treatment. Initiate systemic steroids and watch the patient closely for any signs of anxiety or psychosis. Continue to follow.
[2019-07-21 11:47] LABS: Glucose,Whole Blood 132 mg/dL (75-99)
[2019-07-21] MEDS: methylPREDNISolone SOD SUCCI 40 MG/ML 1 ML VIAL IV SCH ×2 (12:07→21:53)
[2019-07-21 13:32] LABS: Basophils # (A) 0.3 k/uL (0-0.2); Basophils % (A) 3 %; Eosinophils # (A) 0.1 k/uL (0-0.7); Eosinophils % (A) 1 %; HCT 37.2 % (34.0-46.0); HGB 12.1 gm/dL (11.4-16.0); Hypochromasia Slight; Lymphocytes # (A) 0.9 k/uL (1.0-4.8); Lymphocytes % (A) 11 %; MCH 29.6 pg (25.0-35.0); MCHC 32.5 g/dL (31.0-37.0); MCV 91.2 fL (80.0-100.0); Mean Platelet Volume 5.5; Monocytes # (A) 0.6 k/uL (0-1.0); Monocytes % (A) 7 %; Neutrophils # (A) 6.9 k/uL (1.3-7.7); Neutrophils % (A) 78 %; Platelet Count 362 k/uL (150-450); RBC 4.08 m/uL (3.80-5.40); RDW 14.1 % (11.5-15.5); WBC 8.9 k/uL (3.8-10.6)
[2019-07-21 13:46] LABS: Potassium 4.1 mmol/L (3.5-5.1)
[2019-07-21 16:53] LABS: Glucose,Whole Blood 152 mg/dL (75-99)
--- NOTE | 2019-07-21 18:34 | HP ---
HISTORY AND PHYSICAL DATE OF SERVICE: 07/21/2019 CHIEF COMPLAINT: Shortness of breath. HISTORY OF PRESENT ILLNESS: This 74-year-old woman admitted with COPD, acute exacerbation, has significant shortness of breath. The patient has extensive wheezing at this time. Dr. Goddard is following the patient closely. The patient is unable to tolerate steroids because of psychosis at this time. The patient is on empiric antibiotics as well. Past medical history reviewed. REVIEW OF SYSTEMS: CARDIOVASCULAR SYSTEM: No angina, palpitations. RESPIRATORY SYSTEM: As mentioned earlier. GI: No nausea, vomiting. : No dysuria or retention. NERVOUS SYSTEM: No numbness, weakness. CURRENT MEDICATIONS: Reviewed. They include: 1. Tylenol 650 q.6 p.r.n. 2. Whitman 5 mg q.6 p.r.n. 3. DuoNeb q.i.d. and p.r.n. 4. Norvasc 5 mg p.o. b.i.d. 5. Pulmicort 1 mg b.i.d. 6. Perforomist 20 mg b.i.d. 7. Heparin 5000 units subcutaneously b.i.d. 8. Levaquin 250 mg p.o. daily. 9. Solu-Medrol 40 IV q.8. 10.Narcan. 11.Habitrol. 12.Protonix. PHYSICAL EXAMINATION: Patient is alert, oriented x3. Pulse is 99, blood pressure 150/58, respiration 28, temperature 98.4, pulse ox 95% on 9 L Ventimask. HEENT: Conjunctivae normal. NECK: No jugular venous distention. CARDIOVASCULAR SYSTEM: S1, S2 muffled. RESPIRATORY SYSTEM: Breath sounds diminished at the bases. A few scattered rhonchi and crackles. Extensive expiratory wheezing and prolongation also present. A few crackles also heard. ABDOMEN: Soft, nontender. No mass palpable. LEGS: No edema. No swelling. NERVOUS SYSTEM: Higher functions as mentioned earlier. Moves all 4 limbs. No focal motor or sensory deficit. LYMPHATICS: No lymph node palpable in neck, axillae or groin. SKIN: No ulcer, rash, bleeding. JOINTS: No active deforming arthropathy. LABS: CBC within normal limits. Creatinine is 1.9. ASSESSMENT: 1. Chronic obstructive pulmonary disease, acute exacerbation, with acute purulent tracheobronchitis and acute hypoxic respiratory failure. 2. Continued ongoing nicotine dependence. 3. Hypertension. 4. Chronic low back pain. 5. Increased creatinine with possible mild acute renal failure, acute tubular necrosis, prerenal renal failure. 6. Slow to respond. 7. History of steroid psychosis. 8. Anxiety, depression. 9. Obesity with body mass index of 36.6. RECOMMENDATIONS AND DISCUSSION: I recommend to continue current medications, continue with the monitoring, symptomatic treatment. We will continue to monitor. Continue with the intensive bronchodilators, empiric antibiotics. Small dose IV steroids initiated by Pulmonology. Will continue to monitor. Ativan may be used in case of severe anxiety. Otherwise, we will follow the patient closely. Prognosis is guarded. Further recommendations to follow. MMODL / IJN: [id number] /
[2019-07-21 20:35] LABS: Glucose,Whole Blood 165 mg/dL (75-99)
[2019-07-21] MEDS: HYDROcodone/APAP 5-325MG 1 EACH TAB PO PRN (21:57)
[2019-07-21] MEDS: ALPRAZolam 0.25 MG TAB PO PRN (21:57)
[2019-07-22] MEDS: IPRATROPIUM-ALBUTEROL 3 ML NEB INHALATION PRN ×2 (00:25→03:21)
[2019-07-22] MEDS: methylPREDNISolone SOD SUCCI 40 MG/ML 1 ML VIAL IV SCH ×3 (04:02→21:20)
[2019-07-22] MEDS: BUDESONIDE 1 MG/2 ML NEBU INHALATION SCH ×2 (07:35→18:47)
[2019-07-22] MEDS: FORMOTEROL FUMARATE 20 MCG/2 ML NEBU INHALATION SCH ×2 (07:35→18:47)
[2019-07-22] MEDS: IPRATROPIUM-ALBUTEROL 3 ML NEB INHALATION SCH ×4 (07:35→18:47)
[2019-07-22] MEDS: NICOTINE 21MG/24HR PATCH TRANSDERM SCH (08:27)
[2019-07-22] MEDS: amLODIPine 5 MG TAB PO SCH ×2 (08:28→21:19)
[2019-07-22] MEDS: HEPARIN SODIUM,PORCINE 5,000 UNIT/ML 1 ML VIAL SQ SCH ×2 (08:28→21:20)
[2019-07-22] MEDS: ESCITALOPRAM 20 MG TAB PO SCH (08:28)
[2019-07-22] MEDS: LEVOFLOXACIN 250 MG TAB PO SCH (08:28)
[2019-07-22] MEDS: PANTOPRAZOLE 40 MG TABLET PO SCH (08:28)
[2019-07-22] MEDS: HYDROcodone/APAP 5-325MG 1 EACH TAB PO PRN (08:38)
[2019-07-22] MEDS: ALPRAZolam 0.25 MG TAB PO PRN ×2 (08:38→21:20)
[2019-07-22 09:23] LABS: Basophils % (A) 0 %; Eosinophils % (A) 1 %; HCT 38.8 % (34.0-46.0); HGB 12.3 gm/dL (11.4-16.0); Hypochromasia Slight; Lymphocytes # (A) 0.5 k/uL (1.0-4.8); Lymphocytes % (A) 7 %; MCHC 31.7 g/dL (31.0-37.0); MCV 91.5 fL (80.0-100.0); Mean Platelet Volume 5.3; Monocytes # (A) 0.1 k/uL (0-1.0); Monocytes % (A) 2 %; Neutrophils # (A) 6.1 k/uL (1.3-7.7); Neutrophils % (A) 90 %; Platelet Count 395 k/uL (150-450); RBC 4.24 m/uL (3.80-5.40); RDW 13.7 % (11.5-15.5); WBC 6.9 k/uL (3.8-10.6)
[2019-07-22 09:27] LABS: Calcium 10.2 mg/dL (8.4-10.2); Potassium 4.9 mmol/L (3.5-5.1)
--- NOTE | 2019-07-22 11:28 | P.PN ---
Subjective On today's evaluation of 07/22/2019 the patient is feeling less shortness of breath compared to yesterday. I will send is marked improvement in her overall pulmonary status over the past 24-48 hours. I offered to systemic steroids and she is on IV Solu-Medrol. I'm please also reported that has been no significant agitation or confusion or any signs of psychosis while being on systemic steroids. She is on 8 L of oxygen by nasal cannula. She still has a congested cough. Unable to bring up much sputum. She is taking liquids orally and she is able to tolerate her diet without any major difficulties. No significant swelling in the lower extremities for now. No angina. No altered mentation. Objective - Vital Signs Vital signs: Vital Signs Temp 97.9 F 07/22/19 05:34 Pulse 80 07/22/19 11:17 Resp 17 07/22/19 09:28 BP 156/68 07/22/19 05:34 Pulse Ox 96 07/22/19 05:34 Intake & Output 07/21/19 07/22/19 07/22/19 18:59 06:59 18:59 Other: Voiding Method Toilet # Voids 3 1 # Bowel Movements 0 - Exam Gen. appearance the patient is less short of breath compared to yesterday Head exam was generally normal. There was no scleral icterus or corneal arcus. Mucous membranes were moist. Neck was supple and without jugular venous distension, thyromegaly, or carotid bruits. Carotids were easily palpable bilaterally. There was no adenopathy. Lungs sounds are markedly diminished bilaterally especially in the mid in the lower lung [place] and there is prolongation of exhalation phase of breathing and diffuse expiratory wheezes throughout the lung [place] bilaterally. Cardiac exam revealed the PMI to be normally situated and sized. The rhythm was regular and no extrasystoles were noted during several minutes of auscultation. The first and second heart sounds were normal and physiologic splitting of the second heart sound was noted. There were no murmurs, rubs, clicks, or gallops. Overall the heart sounds are distant. Abdominal exam revealed normal bowel sounds. The abdomen was soft, non-tender, and without masses, organomegaly, or appreciable enlargement of the abdominal aorta. Examination of the extremities revealed easily palpable radial, femoral and pedal pulses. There was no cyanosis, clubbing or edema. Examination of the skin revealed no evidence of significant rashes, suspicious appearing nevi or other concerning lesions. Neurologically she is awake and alert and there is no focal neurological deficits and she is communicating. She looks a bit anxious. - Labs CBC & Chem 7: 07/22/19 08:28 07/22/19 08:28 Labs: Abnormal Lab Results - Last 24 Hours (Table) 07/21/19 07/21/19 07/21/19 Range/Units 11:35 12:45 12:45 Lymphocytes # 0.9 L (1.0-4.8) k/uL Basophils # 0.3 H (0-0.2) k/uL Carbon Dioxide 31 H (22-30) mmol/L BUN (7-17) mg/dL Creatinine 1.19 H (0.52-1.04) mg/dL Glucose 112 H (74-99) mg/dL POC Glucose (mg/dL) 132 H (75-99) mg/dL 07/21/19 07/21/19 07/22/19 Range/Units 16:41 20:33 08:28 Lymphocytes # 0.5 L (1.0-4.8) k/uL Basophils # (0-0.2) k/uL Carbon Dioxide (22-30) mmol/L BUN (7-17) mg/dL Creatinine (0.52-1.04) mg/dL Glucose (74-99) mg/dL POC Glucose (mg/dL) 152 H 165 H (75-99) mg/dL 07/22/19 Range/Units 08:28 Lymphocytes # (1.0-4.8) k/uL Basophils # (0-0.2) k/uL Carbon Dioxide (22-30) mmol/L BUN 18 H (7-17) mg/dL Creatinine 1.12 H (0.52-1.04) mg/dL Glucose 189 H (74-99) mg/dL POC Glucose (mg/dL) (75-99) mg/dL Assessment and Plan Plan: 1 acute COPD exacerbation with secondary shortness of breath. The patient has symptoms of tracheal bronchitis. No evidence of any acute pneumonia on today's chest x-ray 2 advanced COPD with an FEV1 of 36% of predicted 3 chronic smoker and the patient smoked more than 2 pack of cigarettes a day. 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 5 obesity with a BMI of 36 6 shortness of breath and a congested cough secondary to above 7 hypertension regular 8 acute hypoxic respiratory failure secondary to above Plan Discontinue the IV Solu-Medrol and start the patient prednisone burst taper starting with 40 mg by mouth we'll continue watching for any signs of CO2 narcosis. We checked her pulse ox on 8 L and she was 95%. Drop the FiO2 down to 5 liters. She is able to sit up on a chair. We'll continue with the bronchodilators. Smoking cessation counseling. We'll continue to follow.
[2019-07-22] MEDS: DOCUSATE 100 MG CAP PO SCH ×2 (17:40→21:20)
--- NOTE | 2019-07-22 19:38 | PN ---
PROGRESS NOTE DATE OF SERVICE: 07/22/2019 This 74-year-old woman who was admitted with COPD, acute exacerbation, is making slow progress. The patient was started on empiric steroids. No chest pain. No palpitations. No fever. PHYSICAL EXAMINATION: Alert and oriented x3. Pulse 88, blood pressure 127/58, respiration 20, temperature 97.7, pulse ox 94% on 5 L. HEENT: Conjunctivae normal. NECK: No jugular venous distention. CARDIOVASCULAR SYSTEM: S1, S2 muffled. RESPIRATORY SYSTEM: Breath sounds diminished at the bases. Scattered rhonchi and crackles. Bilateral expiratory rhonchi are present. ABDOMEN: Soft, non-tender. NERVOUS SYSTEM: No focal deficit. LABS: CBC within normal limits. Creatinine is 1.12. ASSESSMENT: 1. Chronic obstructive pulmonary disease, acute exacerbation, with acute purulent tracheobronchitis with acute hypoxic respiratory failure. 2. Continued ongoing nicotine dependence. 3. Hypertension. 4. Chronic low back pain. 5. Increased creatinine with possible mild acute renal failure with acute tubular necrosis, present on admission, slow to respond. 6. History of steroid psychosis. 7. Anxiety, depression. 8. Obesity with a body mass index of 36.6. RECOMMENDATIONS AND DISCUSSION: I recommend to continue current medications, continue with the monitoring, symptomatic treatment. Otherwise, I would recommend to continue with bronchodilators, empiric antibiotics and empiric steroids. Guarded prognosis. Further recommendations to follow. MMSOUMYAL / MEHDI: [id number] /
[2019-07-22] MEDS ORDERED: DOCUSATE 100 MG CAP PO SCH (21:00)
[2019-07-23] MEDS: methylPREDNISolone SOD SUCCI 40 MG/ML 1 ML VIAL IV SCH ×3 (04:27→21:31)
[2019-07-23] MEDS: IPRATROPIUM-ALBUTEROL 3 ML NEB INHALATION SCH ×4 (08:29→19:36)
[2019-07-23] MEDS: FORMOTEROL FUMARATE 20 MCG/2 ML NEBU INHALATION SCH ×2 (08:29→19:36)
[2019-07-23] MEDS: BUDESONIDE 1 MG/2 ML NEBU INHALATION SCH ×2 (08:29→19:36)
[2019-07-23] MEDS: HYDROcodone/APAP 5-325MG 1 EACH TAB PO PRN (08:42)
[2019-07-23] MEDS: LEVOFLOXACIN 250 MG TAB PO SCH (08:43)
[2019-07-23] MEDS: NICOTINE 21MG/24HR PATCH TRANSDERM SCH (08:43)
[2019-07-23] MEDS: PANTOPRAZOLE 40 MG TABLET PO SCH (08:43)
[2019-07-23] MEDS: ESCITALOPRAM 20 MG TAB PO SCH (08:43)
[2019-07-23] MEDS: amLODIPine 5 MG TAB PO SCH ×2 (08:43→21:31)
[2019-07-23] MEDS: DOCUSATE 100 MG CAP PO SCH ×2 (08:43→21:31)
[2019-07-23] MEDS: HEPARIN SODIUM,PORCINE 5,000 UNIT/ML 1 ML VIAL SQ SCH ×2 (08:44→21:31)
[2019-07-23 09:51] LABS: Basophils % (A) 0 %; Eosinophils # (A) 0.1 k/uL (0-0.7); Eosinophils % (A) 1 %; HCT 38.4 % (34.0-46.0); HGB 12.4 gm/dL (11.4-16.0); Lymphocytes # (A) 0.5 k/uL (1.0-4.8); Lymphocytes % (A) 5 %; MCH 29.8 pg (25.0-35.0); MCHC 32.4 g/dL (31.0-37.0); MCV 92.1 fL (80.0-100.0); Mean Platelet Volume 5.9; Monocytes # (A) 0.4 k/uL (0-1.0); Monocytes % (A) 4 %; Neutrophils % (A) 90 %; Platelet Count 389 k/uL (150-450); RBC 4.17 m/uL (3.80-5.40); RDW 14.2 % (11.5-15.5); WBC 10.1 k/uL (3.8-10.6)
[2019-07-23 10:17] LABS: Calcium 10.1 mg/dL (8.4-10.2); Potassium 5.2 mmol/L (3.5-5.1)
--- NOTE | 2019-07-23 11:45 | P.PN ---
Subjective Progress Note Date: 07/23/19 On 07/23/2019 there is marked improvement in the patient's breathing status. She is less short of breath. She is less bronchospastic and wheezy. She had some issues with insomnia overnight probably related to systemic steroids. However, there has been no agitation or confusion or psychosis or change in mental status. Note that she was on 8 L earlier and we were able to cut her down to 4 L and no further weaning was done since.. She is still on Levaquin. She is on IV Solu-Medrol. She is on bronchodilators around the clock. She carries Symbicort at home. No other complaints Objective - Vital Signs Vital signs: Vital Signs Temp 98.0 F 07/23/19 04:30 Pulse 79 07/23/19 08:50 Resp 24 07/23/19 04:30 BP 177/76 07/23/19 04:30 Pulse Ox 94 L 07/23/19 04:30 Intake & Output 07/22/19 07/23/19 07/23/19 18:59 06:59 18:59 Intake Total 540 800 Balance 540 800 Intake: Oral 540 800 Other: Voiding Method Toilet # Voids 2 2 # Bowel Movements 1 - Exam Gen. appearance the patient is less short of breath compared to yesterday Head exam was generally normal. There was no scleral icterus or corneal arcus. Mucous membranes were moist. Neck was supple and without jugular venous distension, thyromegaly, or carotid bruits. Carotids were easily palpable bilaterally. There was no adenopathy. Lungs sounds are markedly diminished bilaterally are all bronchospasm and wheezing has improved. Cardiac exam revealed the PMI to be normally situated and sized. The rhythm was regular and no extrasystoles were noted during several minutes of auscultation. The first and second heart sounds were normal and physiologic splitting of the second heart sound was noted. There were no murmurs, rubs, clicks, or gallops. Overall the heart sounds are distant. Abdominal exam revealed normal bowel sounds. The abdomen was soft, non-tender, and without masses, organomegaly, or appreciable enlargement of the abdominal aorta. Examination of the extremities revealed easily palpable radial, femoral and pedal pulses. There was no cyanosis, clubbing or edema. Examination of the skin revealed no evidence of significant rashes, suspicious appearing nevi or other concerning lesions. Neurologically she is awake and alert and there is no focal neurological deficits and she is communicating. She looks a bit anxious. - Labs CBC & Chem 7: 07/23/19 08:57 07/23/19 08:57 Labs: Abnormal Lab Results - Last 24 Hours (Table) 07/23/19 07/23/19 Range/Units 08:57 08:57 Neutrophils # 9.0 H (1.3-7.7) k/uL Lymphocytes # 0.5 L (1.0-4.8) k/uL Potassium 5.2 H (3.5-5.1) mmol/L BUN 26 H (7-17) mg/dL Glucose 143 H (74-99) mg/dL Assessment and Plan Plan: 1 acute COPD exacerbation with secondary shortness of breath. The patient has symptoms of tracheal bronchitis. No evidence of any acute pneumonia on today's chest x-ray 2 advanced COPD with an FEV1 of 36% of predicted 3 chronic smoker and the patient smoked more than 2 pack of cigarettes a day. 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 5 obesity with a BMI of 36 6 shortness of breath and a congested cough secondary to above 7 hypertension regular 8 acute hypoxic respiratory failure secondary to above Plan clinically improved. I think we can discontinue the IV Solu-Medrol and start the patient on a prednisone burst taper starting with 40 mg to be stable by 10 mg every 4 days. She can also completed the course of Levaquin. Follow-up with us in the office. We'll check a room air pulse ox at rest and with activity and we'll assess her candidacy to be placed on oxygen for now. She has Symbicort at home as maintenance and do not nebulized treatments around the clock. Possible discharge today.
[2019-07-23] MEDS: ALPRAZolam 0.25 MG TAB PO PRN (21:31)
--- NOTE | 2019-07-23 21:47 | PN ---
PROGRESS NOTE DATE OF SERVICE: 07/23/2019 This 74-year-old woman was admitted with COPD acute exacerbation, being closely monitored. No chest pain. No palpitations. No fever. Patient is complaining of increasing shortness of breath. Dr. Goddard is following the patient closely. PHYSICAL EXAM: Alert and oriented x3. Pulse 78, blood pressure 150/60, respiration 18, temperature 97.9, pulse ox 98% on 5 L. HEENT: Conjunctivae normal. Oral mucosa moist. NECK: No jugular venous distention. No lymph node enlargement. CARDIOVASCULAR: S1, S2. RESPIRATORY: Diminished breath sounds at the bases. A few scattered rhonchi and crackles. ABDOMEN: Soft, nontender. LEGS: No swelling. NERVOUS SYSTEM: No focal deficits. LABS: At this time CBC within normal limits. Potassium 5.2, creatinine is 1.04. ASSESSMENT: 1. Chronic obstructive pulmonary disease exacerbation with acute purulent tracheobronchitis with acute hypoxic respiratory failure. 2. Continued ongoing nicotine dependence history. 3. Hypertension. 4. Chronic low back pain. 5. Increased creatinine with possible mild acute renal failure with acute tubular necrosis and prerenal factors on admission, improving. 6. History of steroid psychosis. 7. Mild hyperkalemia. 8. Anxiety, depression. 9. Obesity with body mass index of 36.6. RECOMMENDATIONS AND DISCUSSION: Recommend to continue current management, continue symptomatic treatment. Continue with high-dose IV steroids. Continue the antibiotics. Continue the bronchodilators. Prognosis guarded because of multiple complex medical issues. Further recommendations to follow. MMODL / IJN: [id number] /
[2019-07-24] MEDS: methylPREDNISolone SOD SUCCI 40 MG/ML 1 ML VIAL IV SCH (04:13)
[2019-07-24 06:01] VITALS: BP 149/66; RESP 18; TEMP 97.8
[2019-07-24] MEDS: BUDESONIDE 1 MG/2 ML NEBU INHALATION SCH (07:10)
[2019-07-24] MEDS: FORMOTEROL FUMARATE 20 MCG/2 ML NEBU INHALATION SCH (07:10)
[2019-07-24] MEDS: IPRATROPIUM-ALBUTEROL 3 ML NEB INHALATION SCH ×2 (07:10→11:00)
[2019-07-24] MEDS: LEVOFLOXACIN 250 MG TAB PO SCH (08:05)
[2019-07-24] MEDS: HEPARIN SODIUM,PORCINE 5,000 UNIT/ML 1 ML VIAL SQ SCH (08:05)
[2019-07-24] MEDS: amLODIPine 5 MG TAB PO SCH (08:05)
[2019-07-24] MEDS: DOCUSATE 100 MG CAP PO SCH ×2 (08:05→08:08)
[2019-07-24] MEDS: PANTOPRAZOLE 40 MG TABLET PO SCH (08:05)
[2019-07-24] MEDS: ESCITALOPRAM 20 MG TAB PO SCH (08:05)
[2019-07-24] MEDS: NICOTINE 21MG/24HR PATCH TRANSDERM SCH (08:06)
[2019-07-24] MEDS ORDERED: predniSONE 20 MG TAB PO SCH (09:00)
--- NOTE | 2019-07-24 11:05 | P.PN ---
Subjective Progress Note Date: 07/24/19 On 07/24/2019 the patient is feeling better and she is less short of breath. She was about to the steroids home yesterday, however were unable to arrange and she end up paying for another 24 hours. She received another 24 hours of IV Solu-Medrol and she'll be switched to prednisone taper as of today. She has Symbicort at home. She has a nebulizer at home. No major side effects to systemic steroids. Her pulse ox currently is at 95% on 5 L of oxygen by nasal cannula. No significant edema in lower extremities. No angina. Objective - Vital Signs Vital signs: Vital Signs Temp 97.8 F 07/24/19 06:00 Pulse 78 07/24/19 07:29 Resp 18 07/24/19 06:00 BP 149/66 07/24/19 06:00 Pulse Ox 90 L 07/24/19 10:33 Intake & Output 07/23/19 07/24/19 07/24/19 18:59 06:59 18:59 Intake Total 1600 Balance 1600 Weight 90.718 kg Intake: Oral 1600 Other: # Voids 2 1 # Bowel Movements 1 - Exam Gen. appearance , comfortable likely distress Head exam was generally normal. There was no scleral icterus or corneal arcus. Mucous membranes were moist. Neck was supple and without jugular venous distension, thyromegaly, or carotid bruits. Carotids were easily palpable bilaterally. There was no adenopathy. Lungs sounds are markedly diminished bilaterally are all bronchospasm and wheezing has improved. Cardiac exam revealed the PMI to be normally situated and sized. The rhythm was regular and no extrasystoles were noted during several minutes of auscultation. The first and second heart sounds were normal and physiologic splitting of the second heart sound was noted. There were no murmurs, rubs, clicks, or gallops. Overall the heart sounds are distant. Abdominal exam revealed normal bowel sounds. The abdomen was soft, non-tender, and without masses, organomegaly, or appreciable enlargement of the abdominal aorta. Examination of the extremities revealed easily palpable radial, femoral and pedal pulses. There was no cyanosis, clubbing or edema. Examination of the skin revealed no evidence of significant rashes, suspicious appearing nevi or other concerning lesions. Neurologically she is awake and alert and there is no focal neurological deficits and she is communicating. She looks a bit anxious. - Labs CBC & Chem 7: 07/23/19 08:57 07/23/19 08:57 Assessment and Plan Plan: 1 acute COPD exacerbation with secondary shortness of breath. The patient has symptoms of tracheal bronchitis. No evidence of any acute pneumonia on today's chest x-ray, clinically improving and the patient is less short of breath and ranges of being made for her to be discharged home. 2 advanced COPD with an FEV1 of 36% of predicted 3 chronic smoker and the patient smoked more than 2 pack of cigarettes a day. 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 5 obesity with a BMI of 36 6 shortness of breath and a congested cough secondary to above 7 hypertension 8 acute hypoxic respiratory failure secondary to above Plan Clinically the patient is looking well. No significant shortness of breath on today's evaluation she is improving. The patient will be weaned off the FiO2 gradually. She'll be discharged home on a prednisone burst taper, home O2 and albuterol and Atrovent about treatments around the clock. We'll continue to follow.
[2019-07-24 11:14] VITALS: PULSE 84
--- NOTE | 2019-07-25 00:15 | DS ---
DISCHARGE SUMMARY DATE OF SERVICE: 07/24/2019. FINAL DIAGNOSES: 1. Chronic obstructive pulmonary disease acute exacerbation with acute purulent ventricular bronchitis with acute hypoxic respiratory failure. 2. Continued ongoing nicotine dependence history. 3. Hypertension. 4. Chronic low back pain. 5. Increased creatinine with possible mild acute renal failure with acute tubular necrosis prerenal factors on admission improving. 6. History of steroid psychosis. 7. Mild hyperkalemia. 8. Anxiety, depression. 9. Obesity with body mass index of 36.6. DISCHARGE DISPOSITION: The patient will be discharged in stable condition with guarded prognosis. Discharge cleared by Dr. Goddard. HISTORY OF PRESENT ILLNESS: This 74 -year-old woman with a past medical problems admitted with COPD exacerbation, multiple other medical issues as mentioned earlier. Patient treated with bronchodilators and short course of steroids. Patient improved significantly. On exam vitals stable. Cardiovascular: S1, S2. Abdomen soft. Nervous system: Hfn. DISCHARGE ADVICE AND MEDICATIONS: 1. Diet is cardiac diet. 2. Activity limited until followup. 3. Follow up with primary physician in 2-3 days. 4. Follow up with Dr. Goddard as recommended. DISCHARGE MEDICATIONS: 1. DuoNeb q.i.d. 2. Lexapro 20 mg p.o. 3. Norvasc 5 mg p.o. b.i.d. 4. Symbicort 160/4.5 two puffs b.i.d. 5. Ventolin HFA 1-2 puffs q.6h p.r.n. Habitrol 14. 6. Levaquin 250 mg p.o. daily. 7. Prednisone 40 mg daily for 3 days 30 for 3 days, 20 for 3 days 10 for 3 days and stop. Once again the patient discharged in stable condition with guarded prognosis. Thank you. MMODL / IJN: [id number] /
== END 2019-07-24 13:35 | disposition home or self-care (01) | DRG 190 ==
LOC: EC 05:40 → SUPCPDRO 05:40 → 4MS4W 07:31 → OBSVTOIN 07-21 11:08 → 4MS4W 07-21 19:48
PROVIDERS: ADMIT Hospitalist; ATTEND Hospitalist
DX: J44.0 Chronic obstructive pulmonary disease with (acute) lower respiratory infection (principal); J96.01 Acute respiratory failure with hypoxia; N17.0 Acute kidney failure with tubular necrosis; J44.1 Chronic obstructive pulmonary disease with (acute) exacerbation; J20.9 Acute bronchitis, unspecified; D72.829 Elevated white blood cell count, unspecified; E11.9 Type 2 diabetes mellitus without complications; E66.9 Obesity, unspecified; E87.5 Hyperkalemia; F17.210 Nicotine dependence, cigarettes, uncomplicated; F32.9 Major depressive disorder, single episode, unspecified; F41.9 Anxiety disorder, unspecified; G89.29 Other chronic pain; I10 Essential (primary) hypertension; K59.00 Constipation, unspecified; T38.0X5A Adverse effect of glucocorticoids and synthetic analogues, initial encounter; Z68.36 Body mass index [BMI] 36.0-36.9, adult; Z79.51 Long term (current) use of inhaled steroids; Z79.899 Other long term (current) drug therapy; Z81.1 Family history of alcohol abuse and dependence; Z82.49 Family history of ischemic heart disease and other diseases of the circulatory system; Z88.1 Allergy status to other antibiotic agents; Z88.8 Allergy status to other drugs, medicaments and biological substances
CPT/HCPCS: 36415; 71046; 80048; 80053; 83735; 83880; 84484; 85025; 85610; 85730; 93005; 94640; 94760; 99285

== ENCOUNTER 2019-12-29 05:01 | Inpatient (IN) | payer MEDICARE ==
--- NOTE | 2019-12-29 05:26 | ED ---
SOB HPI - General Chief Complaint: Shortness of Breath Stated Complaint: SOB, Weakness Time Seen by Provider: 12/29/19 05:25 Source: patient, RN notes reviewed, old records reviewed Mode of arrival: wheelchair Limitations: no limitations - History of Present Illness Initial Comments: This is a 74-year-old female DF for shortness of breath does admit to anxiety patient has not been feeling well ligament swelling increasing redness both lower legs. Mild nausea no vomiting patient states she feels very uneasy she also is very short of breath especially with exertion. No recent travel history or sick contacts no fevers or chest pain MD Complaint: shortness of breath, cough -: days(s) Severity: moderate Severity scale (1-10): 7 Consistency: constant, intermittent Worsens With: lying flat Known History Of: COPD, asthma, recurrent pneumonia Context: recent URI Associated Symptoms: chest pain, cough, sputum production Treatments Prior to Arrival: none - Related Data Home Medications Medication Instructions Recorded Confirmed Budesonide/Formoterol Fumarate 2 puff INHALATION RT-BID 07/20/19 12/29/19 [Symbicort 160-4.5 Mcg Inhaler] Escitalopram [Lexapro] 20 mg PO DAILY 07/20/19 12/29/19 amLODIPine [Norvasc] 5 mg PO DAILY 07/20/19 12/29/19 Albuterol Inhaler [Ventolin Hfa 2 puff INHALATION RT-QID 12/29/19 12/29/19 Inhaler] Spironolactone 50 mg PO DAILY 12/29/19 12/29/19 Previous Rx's Medication Instructions Recorded Amoxic-Pot Clav 875-125Mg 1 tab PO Q12HR #20 tablet 12/29/19 [Augmentin 875-125] Furosemide [Lasix] 40 mg PO BID #6 tablet 12/29/19 Allergies Allergy/AdvReac Type Severity Reaction Status Date / Time cefuroxime [From Ceftin] AdvReac Nausea & Verified 12/29/19 07:43 Vomiting methylprednisolone AdvReac Hallucinati Verified 12/29/19 07:43 [From Solu-Medrol] ons prednisone AdvReac SHAKING Verified 12/29/19 07:43 Review of Systems ROS Statement: Those systems with pertinent positive or pertinent negative responses have been documented in the HPI. ROS Other: All systems not noted in ROS Statement are negative. Past Medical History Past Medical History: COPD, Hypertension, Liver Disease Additional Past Medical History / Comment(s): Chronic low back pain, steroid psychosis, ETOH abuse, Eczema, History of Any Multi-Drug Resistant Organisms: None Reported Past Surgical History: Tonsillectomy Past Anesthesia/Blood Transfusion Reactions: No Reported Reaction Past Psychological History: Anxiety, Depression Smoking Status: Current every day smoker Past Alcohol Use History: None Reported Past Drug Use History: None Reported - Past Family History Father Additional Family Medical History / Comment(s): Father was an alcoholic Mother Family Medical History: Congestive Heart Failure (CHF) General Exam Limitations: no limitations General appearance: alert, anxious, obtunded Head exam: Present: atraumatic, normocephalic, normal inspection Eye exam: Present: normal appearance, PERRL, EOMI. Absent: scleral icterus, c onjunctival injection, periorbital swelling ENT exam: Present: normal exam, mucous membranes moist Neck exam: Present: normal inspection. Absent: tenderness, meningismus, lymphadenopathy Respiratory exam: Present: wheezes. Absent: rales, rhonchi, stridor Cardiovascular Exam: Present: regular rate, normal rhythm, normal heart sounds. Absent: systolic murmur, diastolic murmur, rubs, gallop, clicks GI/Abdominal exam: Present: soft, normal bowel sounds. Absent: distended, tenderness, guarding, rebound, rigid Extremities exam: Present: normal inspection, full ROM, normal capillary refill. Absent: tenderness, pedal edema, joint swelling, calf tenderness Back exam: Present: normal inspection Neurological exam: Present: alert, oriented X3, CN II-XII intact Psychiatric exam: Present: normal affect, normal mood Skin exam: Present: warm, dry, intact, normal color. Absent: rash Course Vital Signs 12/29/19 12/29/19 12/29/19 05:13 05:18 06:00 Temperature 98.3 F Pulse Rate 86 82 Respiratory 18 Rate Blood Pressure 195/76 O2 Sat by Pulse 86 L 98 Oximetry 12/29/19 12/29/19 12/29/19 06:17 06:35 08:00 Temperature 98.2 F Pulse Rate 94 98 98 Respiratory 20 20 Rate Blood Pressure 176/68 153/90 O2 Sat by Pulse 98 96 Oximetry 12/29/19 08:34 Temperature Pulse Rate 98 Respiratory 20 Rate Blood Pressure 153/90 O2 Sat by Pulse 96 Oximetry - Reevaluation(s) Reevaluation #1: 12/29/19 05:26 Medical records reviewed Patient not feeling any better here in the ER Patient is again remaining without chest pain Medical Decision Making - Medical Decision Making 74 female DF for evaluation patient with us today for evaluation regards to shortness of breath she does have anxiety and COPD exacerbation. Patient has bilateral lower extremity edema and cellulitis will place on antibiotics. - Lab Data Result diagrams: 12/29/19 05:58 12/29/19 05:58 Lab Results 12/29/19 12/29/19 12/29/19 Range/Units 05:58 05:58 05:58 WBC 13.1 H (3.8-10.6) k/uL RBC 4.85 (3.80-5.40) m/uL Hgb 14.0 (11.4-16.0) gm/dL Hct 44.6 (34.0-46.0) % MCV 92.1 (80.0-100.0) fL MCH 28.8 (25.0-35.0) pg MCHC 31.3 (31.0-37.0) g/dL RDW 16.1 H (11.5-15.5) % Plt Count 382 (150-450) k/uL Neutrophils % 89 % Lymphocytes % 6 % Monocytes % 3 % Eosinophils % 1 % Basophils % 0 % Neutrophils # 11.6 H (1.3-7.7) k/uL Lymphocytes # 0.7 L (1.0-4.8) k/uL Monocytes # 0.4 (0-1.0) k/uL Eosinophils # 0.2 (0-0.7) k/uL Basophils # 0.0 (0-0.2) k/uL Hypochromasia Slight Anisocytosis Slight PT 9.6 (9.0-12.0) sec INR 0.9 (<1.2) APTT 23.9 (22.0-30.0) sec Sodium 135 L (137-145) mmol/L Potassium 5.0 (3.5-5.1) mmol/L Chloride 101 (98-107) mmol/L Carbon Dioxide 26 (22-30) mmol/L Anion Gap 8 mmol/L BUN 13 (7-17) mg/dL Creatinine 0.97 (0.52-1.04) mg/dL Est GFR (CKD-EPI)AfAm 67 (>60 ml/min/1.73 sqM) Est GFR (CKD-EPI)NonAf 58 (>60 ml/min/1.73 sqM) Glucose 121 H (74-99) mg/dL Plasma Lactic Acid Rick (0.7-2.0) mmol/L Calcium 9.1 (8.4-10.2) mg/dL Magnesium 2.4 H (1.6-2.3) mg/dL Total Bilirubin 0.4 (0.2-1.3) mg/dL AST 17 (14-36) U/L ALT 10 (4-34) U/L Alkaline Phosphatase 89 (38-126) U/L Troponin I (0.000-0.034) ng/mL NT-Pro-B Natriuret Pep pg/mL Total Protein 6.6 (6.3-8.2) g/dL Albumin 3.9 (3.5-5.0) g/dL 12/29/19 12/29/19 12/29/19 Range/Units 05:58 05:58 05:58 WBC (3.8-10.6) k/uL RBC (3.80-5.40) m/uL Hgb (11.4-16.0) gm/dL Hct (34.0-46.0) % MCV (80.0-100.0) fL MCH (25.0-35.0) pg MCHC (31.0-37.0) g/dL RDW (11.5-15.5) % Plt Count (150-450) k/uL Neutrophils % % Lymphocytes % % Monocytes % % Eosinophils % % Basophils % % Neutrophils # (1.3-7.7) k/uL Lymphocytes # (1.0-4.8) k/uL Monocytes # (0-1.0) k/uL Eosinophils # (0-0.7) k/uL Basophils # (0-0.2) k/uL Hypochromasia Anisocytosis PT (9.0-12.0) sec INR (<1.2) APTT (22.0-30.0) sec Sodium (137-145) mmol/L Potassium (3.5-5.1) mmol/L Chloride (98-107) mmol/L Carbon Dioxide (22-30) mmol/L Anion Gap mmol/L BUN (7-17) mg/dL Creatinine (0.52-1.04) mg/dL Est GFR (CKD-EPI)AfAm (>60 ml/min/1.73 sqM) Est GFR (CKD-EPI)NonAf (>60 ml/min/1.73 sqM) Glucose (74-99) mg/dL Plasma Lactic Acid Rick 0.9 (0.7-2.0) mmol/L Calcium (8.4-10.2) mg/dL Magnesium (1.6-2.3) mg/dL Total Bilirubin (0.2-1.3) mg/dL AST (14-36) U/L ALT (4-34) U/L Alkaline Phosphatase (38-126) U/L Troponin I <0.012 (0.000-0.034) ng/mL NT-Pro-B Natriuret Pep 542 pg/mL Total Protein (6.3-8.2) g/dL Albumin (3.5-5.0) g/dL - EKG Data -: EKG Interpreted by Me (EKG shows sinus rhythm 92, OR 176, QRS 80, QTC 435) - Radiology Data Radiology results: report reviewed (Chest x-ray is negative for acute disease), image reviewed Critical Care Time Critical Care Time: Yes Total Critical Care Time: 31 Disposition Clinical Impression: COPD exacerbation, Bilateral lower leg cellulitis, Bilateral leg edema, Anxiety, Hypoxia Disposition: ADMITTED IP TO THIS HOSP Condition: Fair Is patient prescribed a controlled substance at d/c from ED?: No
[2019-12-29] MEDS ORDERED: ALBUTEROL NEBULIZED 2.5 MG/3 ML INHALATION STA (05:32)
[2019-12-29] MEDS ORDERED: IPRATROPIUM 0.5 MG/2.5 ML NEBU INHALATION STA (05:32)
--- NOTE | 2019-12-29 05:43 | XR ---
EXAMINATION TYPE: XR chest 1V portable DATE OF EXAM: 12/29/2019 COMPARISON: 07/20/2019 HISTORY: Short of breath TECHNIQUE: FINDINGS: Heart and mediastinum are normal. Lungs are clear. Diaphragm is normal. Bony thorax appears normal. IMPRESSION: Normal chest. No adverse change compared to old exam.
[2019-12-29 06:13] LABS: Anisocytosis Slight; Basophils % (A) 0 %; Eosinophils # (A) 0.2 k/uL (0-0.7); Eosinophils % (A) 1 %; HCT 44.6 % (34.0-46.0); Hypochromasia Slight; Lymphocytes # (A) 0.7 k/uL (1.0-4.8); Lymphocytes % (A) 6 %; MCH 28.8 pg (25.0-35.0); MCHC 31.3 g/dL (31.0-37.0); MCV 92.1 fL (80.0-100.0); Mean Platelet Volume 6.6; Monocytes # (A) 0.4 k/uL (0-1.0); Monocytes % (A) 3 %; Neutrophils # (A) 11.6 k/uL (1.3-7.7); Neutrophils % (A) 89 %; Platelet Count 382 k/uL (150-450); RBC 4.85 m/uL (3.80-5.40); RDW 16.1 % (11.5-15.5); WBC 13.1 k/uL (3.8-10.6)
[2019-12-29 06:20] LABS: Albumin 3.9 g/dL (3.5-5.0); Calcium 9.1 mg/dL (8.4-10.2); INR 0.9 (<1.2); Magnesium 2.4 mg/dL (1.6-2.3); Partial Thromboplastin Time 23.9 sec (22.0-30.0); Prothrombin Time 9.6 sec (9.0-12.0); Total Bilirubin 0.4 mg/dL (0.2-1.3); Total Protein 6.6 g/dL (6.3-8.2)
[2019-12-29] MEDS ORDERED: FUROSEMIDE 10 MG/ML 4 ML VIAL IV STA (07:06)
[2019-12-29] MEDS ORDERED: MORPHINE SULFATE 4 MG/ML SYRINGE IVP STA (07:19)
[2019-12-29] MEDS: FUROSEMIDE 10 MG/ML 4 ML VIAL IV SCH ×2 (07:38→19:55)
[2019-12-29] MEDS: IPRATROPIUM-ALBUTEROL 3 ML NEB INHALATION SCH ×4 (08:15→20:35)
[2019-12-29] MEDS ORDERED: LEVOFLOXACIN 500 MG TAB PO SCH (09:00)
[2019-12-29] MEDS: MORPHINE SULFATE 4 MG/ML SYRINGE IVP PRN ×2 (09:39→16:41)
[2019-12-29] MEDS ORDERED: SPIRONOLACTONE 25 MG TAB PO SCH (12:30)
[2019-12-29] MEDS: amLODIPine 5 MG TAB PO SCH (13:13)
[2019-12-29] MEDS: ESCITALOPRAM 20 MG TAB PO SCH (13:13)
[2019-12-29] MEDS: ALPRAZolam 0.5 MG TAB PO PRN (13:13)
[2019-12-29] MEDS: NICOTINE 21MG/24HR PATCH TRANSDERM SCH (13:13)
[2019-12-29] MEDS: FAMOTIDINE 20 MG TAB PO SCH (13:13)
--- NOTE | 2019-12-29 13:24 | XR ---
EXAMINATION TYPE: XR Hip Complete RT DATE OF EXAM: 12/29/2019 CLINICAL HISTORY: pain TECHNIQUE: AP and frogleg views of the right hip are obtained. COMPARISON: None. FINDINGS: There is no acute fracture/dislocation evident. The joint space appears moderately narro wed. The overlying soft tissue appears unremarkable. IMPRESSION: 1. There is no acute fracture or dislocation. ICD 10 NO FRACTURE, INITIAL EVALUATION
--- NOTE | 2019-12-29 14:08 | P.HPIM ---
History of Present Illness H&P Date: 12/29/19 Chief Complaint: shortness of Breath This is an ornery 74-year-old female with a past medical history of oxygen dependent COPD on 4 L, hypertension, nicotine dependence, with anxiety and depression. Patient presents with increased shortness of breath, right hip pain, and bilateral lower extremity edema over the past week. I spoke to the patient's daughter, Yvette, for most of the HPI. Outer states that the patient is noncompliant and smokes 2 packs per day. Patient does not wear her oxygen as prescribed. Patient is sedentary and lives alone. Daughter states that she's been trying to get her evaluated for weeks now. Patient called her daughter today stating that she couldn't get up from sliding from the chair. Patient felt weak and had shortness of breath. Daughter was concerned about patient's increased lower extremity edema and redness. Upon evaluation patient was a little bit agitated. Patient is alert and aware of her surroundings. Patient denies chest pain fever chills nausea vomiting. Patient does admit to exertional dyspnea, lower extremity swelling, right hip pain, and inability to empty her bladder fully. COV ID 19 was negative. Chest x-ray was normal. Blood work did reveal an elevated white blood cell count 13.1. Review of Systems A complete 12 point review of systems was assessed patient was positive for those pertinent HPI. Past Medical History Past Medical History: COPD, Hypertension, Liver Disease Additional Past Medical History / Comment(s): Chronic low back pain, steroid psychosis, ETOH abuse, Eczema, Anxiety, Depression History of Any Multi-Drug Resistant Organisms: None Reported Past Surgical History: Tonsillectomy Past Anesthesia/Blood Transfusion Reactions: No Reported Reaction Past Psychological History: Anxiety, Depression Additional Psychological History / Comment(s): Pt resides alone. She uses a walker or cane to ambulate. She does not drive. Her [place], Yvette, is helpful-s he does pt's wash/housework and drives her to [facility]. Pt has a nebulizer. Smoking Status: Current every day smoker Past Alcohol Use History: None Reported Additional Past Alcohol Use History / Comment(s): Pt started smoking as a teen and smokes 2 packs per day. 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 Past Drug Use History: None Reported - Past Family History Father Additional Family Medical History / Comment(s): Father was an alcoholic Mother Family Medical History: Congestive Heart Failure (CHF) Medications and Allergies Home Medications Medication Instructions Recorded Confirmed Type Budesonide/Formoterol Fumarate 2 puff INHALATION RT-BID 07/20/19 12/29/19 History [Symbicort 160-4.5 Mcg Inhaler] Escitalopram [Lexapro] 20 mg PO DAILY 07/20/19 12/29/19 History amLODIPine [Norvasc] 5 mg PO DAILY 07/20/19 12/29/19 History Albuterol Inhaler [Ventolin Hfa 2 puff INHALATION RT-QID 12/29/19 12/29/19 History Inhaler] Amoxic-Pot Clav 875-125Mg 1 tab PO Q12HR #20 tablet 12/29/19 Rx [Augmentin 875-125] Furosemide [Lasix] 40 mg PO BID #6 tablet 12/29/19 Rx Spironolactone 50 mg PO DAILY 12/29/19 12/29/19 History Allergies Allergy/AdvReac Type Severity Reaction Status Date / Time cefuroxime [From Ceftin] AdvReac Nausea & Verified 12/29/19 07:43 Vomiting methylprednisolone AdvReac Hallucinati Verified 12/29/19 07:43 [From Solu-Medrol] ons prednisone AdvReac SHAKING Verified 12/29/19 07:43 Physical Exam Osteopathic Statement: *. No significant issues noted on an osteopathic structural exam other than those noted in the History and Physical/Consult. Vitals: Vital Signs Temp Pulse Pulse Resp BP BP Pulse Ox 12/29/19 12:01 96 12/29/19 11:52 96 12/29/19 09:04 98.0 F 95 17 162/83 98 12/29/19 08:34 98 20 153/90 96 12/29/19 08:00 98 20 153/90 96 12/29/19 06:35 98.2 F 98 20 176/68 98 12/29/19 06:17 94 12/29/19 06:00 82 12/29/19 05:18 98 12/29/19 05:13 98.3 F 86 18 195/76 86 L Intake and Output 12/28/19 12/29/19 12/29/19 22:59 06:59 14:59 Other: Weight 90.718 kg 90.718 kg General: [non toxic], [no distress], [appears at stated age] Derm: [warm], [dry] Head: [atraumatic], [normocephalic], [symmetric] Eyes: [EOMI], [no lid lag], [anicteric sclera] Mouth: [no lip lesion], [mucus membranes moist] Cardiovascular: [S1S2 reg], [no murmur], [positive posterior tibial pulse bilateral], Lungs: [bilateral rhonchi with expiratory wheezing], [no rhonchi, no rales] , [no accessory muscle use] Abdominal: [soft], [ nontender to palpation], [no guarding], [no appreciable organomegaly] Ext: [no gross muscle atrophy], [+2 b/l lower extremity edema with erythema], [no contractures] Neuro: [ CN II-XI grossly intact], [no focal neuro deficits] Psych: [Alert], [oriented], [appropriate affect] Results CBC & Chem 7: 12/29/19 05:58 12/29/19 05:58 Labs: Abnormal Lab Results - Last 24 Hours (Table) 12/29/19 12/29/19 Range/Units 05:58 05:58 WBC 13.1 H (3.8-10.6) k/uL RDW 16.1 H (11.5-15.5) % Neutrophils # 11.6 H (1.3-7.7) k/uL Lymphocytes # 0.7 L (1.0-4.8) k/uL Sodium 135 L (137-145) mmol/L Glucose 121 H (74-99) mg/dL Magnesium 2.4 H (1.6-2.3) mg/dL Thrombosis Risk Factor Assmnt - Choose All That Apply Any of the Below Risk Factors Present?: Yes Each Factor Represents 1 point: Abnormal pulmonary function (COPD), Obesity (BMI >25), Swollen legs (current) Other Risk Factors: Yes Each Risk Factor Represents 2 Points: Age 61-74 years Other congenital or acquired thrombophilia - If yes, enter type in comment: No Thrombosis Risk Factor Assessment Total Risk Factor Score: 5 Thrombosis Risk Factor Assessment Level: High Risk Assessment and Plan Assessment: Shortness of breath secondary to Acute exacerbation of COPD oxygen dependent on 4 L -IV steroids and nebulizer treatments prescribed -Chest x-ray showed no acute pathology identified Increased bilateral lower extremity edema with erythema concern for cellulitis -Clindamycin IV antibiotics ordered Rule out heart failure in addition to venous insufficiency -proBNP was 542 -Echocardiogram ordered -US venous and arterial ordered with concern for PAD -IV lasix Urinary retention -Bladder scan ordered -UA and culture ordered Hypertension uncontrolled -Restart home BP medications Right hip pain likely caused by OA -Check x-ray -PT/OT -Case management consulted secondary to patient living alone with debility -Pain control prescribed Tobacco dependent -Nicotine patch prescribed Recovering alcoholic Anxiety and depression -Xanax when necessary anxiety and agitation -Restart Lexapro GI and DVT prophylaxis AM Labs Cardiac Diet Contact daughter Yvette phone number for any information and updates Greater than 60 minutes spent coordinating care and counseling patient Family physician is Dr. Antonio Patient is a DO NOT RESUSCITATE Time with Patient: Greater than 30 (Greater than 60 minutes)
--- NOTE | 2019-12-29 14:46 | US ---
EXAMINATION TYPE: US venous doppler duplex LE BI DATE OF EXAM: 12/29/2019 2:15 PM COMPARISON: NONE CLINICAL HISTORY: venous insuffiencey . SIDE PERFORMED: Bilateral TECHNIQUE: The lower extremity deep venous system is examined utilizing real time linear array sonog [place] with graded compression, doppler sonography and color-flow sonography. VESSELS IMAGED: External Iliac Vein (EIV) Common Femoral Vein Deep Femoral Vein Greater Saphenous Vein * Femoral Vein Popliteal Vein Small Saphenous Vein * Proximal Calf Veins (* superficial vessels) Patient unable to abduct legs or move to cooperate with examiner. Large body habitus with extensive e jackson. Patient also unable to tolerate compression views on left leg. Technically difficult, limited s tudy. Right Leg: Appears negative for DVT Left Leg: Appears negative for DVT, more technically limited than right due to patient inability to tolerate compression views. Grayscale, color doppler, spectral doppler imaging performed of the deep veins of the bilateral lower extremities. There is normal flow, compressibility, vascular waveforms. Suboptimal evaluation espec ially left lower extremity as documented above. IMPRESSION: Suboptimal study without convincing evidence for acute DVT in either lower extremity. Mo derate subcutaneous edema is seen in the left lower extremity at the popliteal level towards the end of the exam.
--- NOTE | 2019-12-29 14:47 | US ---
EXAMINATION TYPE: US bladder DATE OF EXAM: 12/29/2019 COMPARISON: NONE CLINICAL HISTORY: incomplete emptying . EXAM MEASUREMENTS: Post Void Residual Volume: 470 mL Bladder is satisfactorily distended even after voiding without intraluminal mass or wall thickening. Bilateral distal ureter jets not seen. IMPRESSION: Abnormal post void residual confirmed.
[2019-12-29 14:49] VITALS: BMI 36.6
[2019-12-29] MEDS: CLINDAMYCIN 300 MG in DEXTROSE 5% IN WATER 50 ML IVPB SCH ×4 (16:40→23:13)
[2019-12-29] MEDS: HEPARIN SODIUM,PORCINE 5,000 UNIT/ML 1 ML VIAL SQ SCH ×2 (16:41→23:13)
[2019-12-29] MEDS: methylPREDNISolone SOD SUCCI 125 MG/2 ML VIAL IV SCH ×2 (16:41→23:13)
[2019-12-29 18:53] LABS: Amorphous Sediment,Urine Rare /hpf; Appearance,Urine Clear (Clear); Bacteria,Urine Rare /hpf; Bilirubin,Urine Negative (Negative); Blood,Urine Moderate (Negative); Color,Urine Yellow; Glucose,Urine (UA) Negative (Negative); Hyaline Casts,Urine 101 /lpf (0-2); Ketones,Urine Negative (Negative); Leukocyte Esterase,Urine Negative (Negative); Mucus,Urine Many /hpf; Nitrite,Urine Negative (Negative); Protein,Urine Trace (Negative); RBC,Urine 60 /hpf (0-5); Specific Gravity,Urine 1.016 (1.001-1.035); Squamous Epithelial Cell,Urine 1 /hpf (0-4); Urobilinogen,Urine <2.0 mg/dL (<2.0); WBC,Urine 4 /hpf (0-5)
[2019-12-30] MEDS: IPRATROPIUM-ALBUTEROL 3 ML NEB INHALATION SCH ×4 (07:16→19:21)
[2019-12-30 07:22] LABS: Anisocytosis Slight; Basophils % (A) 0 %; Eosinophils % (A) 0 %; HCT 42.6 % (34.0-46.0); HGB 12.8 gm/dL (11.4-16.0); Hypochromasia Moderate; Lymphocytes # (A) 0.5 k/uL (1.0-4.8); Lymphocytes % (A) 5 %; MCH 27.9 pg (25.0-35.0); MCHC 30.2 g/dL (31.0-37.0); MCV 92.4 fL (80.0-100.0); Mean Platelet Volume 6.3; Monocytes # (A) 0.2 k/uL (0-1.0); Monocytes % (A) 2 %; Neutrophils # (A) 9.4 k/uL (1.3-7.7); Neutrophils % (A) 92 %; Platelet Count 330 k/uL (150-450); RBC 4.61 m/uL (3.80-5.40); RDW 16.3 % (11.5-15.5); WBC 10.2 k/uL (3.8-10.6)
[2019-12-30 07:28] LABS: Albumin 3.9 g/dL (3.5-5.0); Calcium 9.2 mg/dL (8.4-10.2); Potassium 5.4 mmol/L (3.5-5.1); Total Bilirubin 0.3 mg/dL (0.2-1.3); Total Protein 6.6 g/dL (6.3-8.2)
[2019-12-30] MEDS: methylPREDNISolone SOD SUCCI 125 MG/2 ML VIAL IV SCH ×3 (08:00→22:42)
[2019-12-30] MEDS: FAMOTIDINE 20 MG TAB PO SCH (08:01)
[2019-12-30] MEDS: FUROSEMIDE 10 MG/ML 4 ML VIAL IV SCH ×2 (08:01→20:20)
[2019-12-30] MEDS: NICOTINE 21MG/24HR PATCH TRANSDERM SCH (08:01)
[2019-12-30] MEDS: HEPARIN SODIUM,PORCINE 5,000 UNIT/ML 1 ML VIAL SQ SCH ×3 (08:01→22:42)
[2019-12-30] MEDS: ESCITALOPRAM 20 MG TAB PO SCH (08:01)
[2019-12-30] MEDS: amLODIPine 5 MG TAB PO SCH (08:01)
[2019-12-30] MEDS: CLINDAMYCIN 300 MG in DEXTROSE 5% IN WATER 50 ML IVPB SCH ×6 (08:01→22:43)
--- NOTE | 2019-12-30 11:00 | ECHOF ---
Referral Reason:shortness of breath MEASUREMENTS -------- HEIGHT: 157.5 cm WEIGHT: 90.3 kg BP: 167/63 RVIDd: 3.1 cm (< 3.3) IVSd: 1.8 cm (0.6 - 1.1) LVIDd: 3.5 cm (3.9 - 5.3) LVPWd: 1.4 cm (0.6 - 1.1) IVSs: 1.8 cm LVIDs: 2.1 cm LVPWs: 1.4 cm LAESV Index (A-L): 26.67 ml/m Ao Diam: 3.2 cm (2.0 - 3.7) AV Cusp: 1.7 cm (1.5 - 2.6) MV EXCURSION: 9.718 mm (> 18.000) MV EF SLOPE: 24 mm/s (70 - 150) EPSS: 0.9 cm MV E Bryce: 1.08 m/s MV DecT: 243 ms MV A Bryce: 1.46 m/s MV E/A Ratio: 0.74 RAP: 5.00 mmHg RVSP: 31.07 mmHg FINDINGS -------- Sinus rhythm. This was a technically difficult study with suboptimal parasternal views. Pt. not compliant. The left ventricular size is normal. There is moderate concentric left ventricular hypertrophy. O verall left ventricular systolic function is normal with, an EF between 60 - 65 %. The diastolic fi lling pattern is normal for the age of the patient {E/E'}. The right ventricle is normal in size. Normal LA size by volume 22+/-6 ml/m2. The right atrium was not well visualized. Interatrial and interventricular septum intact. The aortic valve was not well visualized. There is no evidence of aortic regurgitation. There is no evidence of aortic stenosis. Mild mitral annular calcification present. Mild mitral regurgitation is present. Mild mitral sten osis , with a MVA of 3.0cm (by PHT) Mild tricuspid regurgitation present. There is borderline pulmonary hypertension. The right ventr icular systolic pressure, as measured by Doppler, is 31.07mmHg. The pulmonic valve was not well visualized. The aortic root size is normal. Normal inferior vena cava with normal inspiratory collapse consistent with estimated right atrial pre ssure of 5 mmHg. There is no pericardial effusion. CONCLUSIONS -------- 1. Sinus rhythm. 2. This was a technically difficult study with suboptimal parasternal views. 3. Pt. not compliant. 4. The left ventricular size is normal. 5. There is moderate concentric left ventricular hypertrophy. 6. Overall left ventricular systolic function is normal with, an EF between 60 - 65 %. 7. The diastolic filling pattern is normal for the age of the patient {E/E'} 8. The right ventricle is normal in size. 9. Normal LA size by volume 22+/-6 ml/m2. 10. The right atrium was not well visualized. 11. Interatrial and interventricular septum intact. 12. The aortic valve was not well visualized. 13. There is no evidence of aortic regurgitation. 14. There is no evidence of aortic stenosis. 15. Mild mitral annular calcification present. 16. Mild mitral regurgitation is present. 17. Mild mitral stenosis. 18. , with a MVA of 3.0cm (by PHT) 19. Mild tricuspid regurgitation present. 20. There is borderline pulmonary hypertension. 21. The right ventricular systolic pressure, as measured by Doppler, is 31.07mmHg. 22. The pulmonic valve was not well visualized. 23. The aortic root size is normal. 24. Normal inferior vena cava with normal inspiratory collapse consistent with estimated right atrial pressure of 5 mmHg. 25. There is no pericardial effusion. RIPRAP PLACER: Lucy Sanchez RDCS
[2019-12-30] MEDS: MORPHINE SULFATE 4 MG/ML SYRINGE IVP PRN (11:07)
[2019-12-30] MEDS: ALPRAZolam 0.5 MG TAB PO PRN ×2 (11:08→20:21)
[2019-12-30] MEDS ORDERED: IPRATROPIUM-ALBUTEROL 3 ML NEB INHALATION PRN (11:24)
--- NOTE | 2019-12-30 13:01 | P.PN ---
Subjective Progress Note Date: 12/30/19 Objective - Vital Signs Vital signs: Vital Signs Temp 97.8 F 12/30/19 07:43 Pulse 92 12/30/19 11:30 Resp 16 12/30/19 07:43 BP 162/74 12/30/19 07:43 Pulse Ox 91 L 12/30/19 07:43 Intake & Output 12/29/19 12/30/19 12/30/19 18:59 06:59 18:59 Intake Total 120 100 Output Total 775 Balance -655 100 Weight 90.718 kg Intake: Oral 120 100 Output: Urine 775 Straight 775 Other: Voiding Method Bedside Commode Bedside Commode Bedside Commode # Voids 3 1 - Labs CBC & Chem 7: 12/30/19 06:41 12/30/19 11:52 Labs: Abnormal Lab Results - Last 24 Hours (Table) 12/29/19 12/30/19 12/30/19 Range/Units 18:30 06:41 06:41 MCHC 30.2 L (31.0-37.0) g/dL RDW 16.3 H (11.5-15.5) % Neutrophils # 9.4 H (1.3-7.7) k/uL Lymphocytes # 0.5 L (1.0-4.8) k/uL Sodium 135 L (137-145) mmol/L Potassium 5.4 H (3.5-5.1) mmol/L BUN 21 H (7-17) mg/dL Creatinine 1.17 H (0.52-1.04) mg/dL Glucose 123 H (74-99) mg/dL HDL Cholesterol 67 H (40-60) mg/dL Urine Protein Trace H (Negative) Urine Blood Moderate H (Negative) Urine RBC 60 H (0-5) /hpf Amorphous Sediment Rare H (None) /hpf Urine Bacteria Rare H (None) /hpf Hyaline Casts 101 H (0-2) /lpf Urine Mucus Many H (None) /hpf Microbiology - Last 24 Hours (Table) 12/29/19 18:30 Urine Culture - Preliminary Urine,Voided Assessment and Plan Assessment: Hyperkalemia Acute on chronic hypoxic respiratory failure COPD exacerbation depending on 4 L NC at home Diastolic CHF exacerbation with bilateral lower extremity edema Lower extremity cellulitis Urinary retention Uncontrolled hypertension Osteoarthritis with right hip pain Nicotine dependence Anxiety and depression Potassium 5.4. Non-hemolyzed. Plans: Repeat. Patient is currently on 5 L NC. Chest x-ray initially showed normal chest. Echocardiogram shows EF 60-65% with moderate concentric LVH. Plans: Supplemental maintain O2 saturation greater than 92%. Optimize COPD medications. Start Lasix for possible CHF exacerbation. Plans: DuoNeb 4 times a day scheduled and as needed for shortness of breath or wheezing. Continue Solu-Medrol. Restart Symbicort. Echocardiogram as above. Plans: Continue Lasix 40 mg IV twice a day. Strict intake and output. Daily weights. Ensure adequate blood pressure control. Improving. Plans: Continue clindamycin IV. Improving. Plans: Continue Lasix as above. Intermittent bladder scan as needed. BP 162/74. Plans: Continue amlodipine. Monitor vitals, adjust medications as necessary. Plans: Ensure adequate pain control. Follow PT recommendations. Plans: Offered nicotine patch. Plans: Continue Lexapro. Xanax as needed. [Patient is slow to improve. Continue IV diuresis. Optimize COPD medications. She is pending clinical improvement. Likely DC in 2-3 days.]
[2019-12-30 13:42] LABS: Hemoglobin A1C 6.2 % (4.0-6.0)
[2019-12-30] MEDS: SYMBICORT 160-4.5 MCG INHALER INHALATION SCH (19:21)
[2019-12-31] MEDS: IPRATROPIUM-ALBUTEROL 3 ML NEB INHALATION SCH ×4 (08:03→19:01)
[2019-12-31] MEDS: SYMBICORT 160-4.5 MCG INHALER INHALATION SCH ×2 (08:04→19:02)
[2019-12-31] MEDS: FUROSEMIDE 10 MG/ML 4 ML VIAL IV SCH (09:21)
[2019-12-31] MEDS: MORPHINE SULFATE 4 MG/ML SYRINGE IVP PRN ×2 (09:28→22:07)
[2019-12-31] MEDS: FAMOTIDINE 20 MG TAB PO SCH (09:38)
[2019-12-31] MEDS: ESCITALOPRAM 20 MG TAB PO SCH (09:38)
[2019-12-31] MEDS: HEPARIN SODIUM,PORCINE 5,000 UNIT/ML 1 ML VIAL SQ SCH ×3 (09:38→22:48)
[2019-12-31] MEDS: NICOTINE 21MG/24HR PATCH TRANSDERM SCH (09:39)
[2019-12-31] MEDS: amLODIPine 5 MG TAB PO SCH (09:39)
[2019-12-31] MEDS: methylPREDNISolone SOD SUCCI 125 MG/2 ML VIAL IV SCH ×3 (09:42→22:49)
[2019-12-31] MEDS: CLINDAMYCIN 300 MG in DEXTROSE 5% IN WATER 50 ML IVPB SCH ×6 (09:49→22:48)
--- NOTE | 2019-12-31 12:48 | XR ---
EXAMINATION TYPE: XR chest 1V portable DATE OF EXAM: 12/31/2019 HISTORY: Shortness of breath. COMPARISON: 12/29/2019 TECHNIQUE: Single view of the chest is submitted. FINDINGS: Demonstrated are scattered senescent parenchymal change. There is no evidence for focal infiltrate. The heart is stable. Hilar and mediastinal structures are within normal limits. Degenerative changes are seen of the dorsal spine. IMPRESSION: 1. Chronic changes without evidence for acute pulmonary disease.
[2019-12-31 13:02] LABS: HCT 42.3 % (34.0-46.0); HGB 13.2 gm/dL (11.4-16.0); Hypochromasia Moderate; MCH 28.9 pg (25.0-35.0); MCHC 31.3 g/dL (31.0-37.0); MCV 92.3 fL (80.0-100.0); Mean Platelet Volume 6.6; Platelet Count 352 k/uL (150-450); RBC 4.58 m/uL (3.80-5.40); WBC 13.7 k/uL (3.8-10.6)
[2019-12-31 13:09] LABS: Albumin 4.3 g/dL (3.5-5.0); Calcium 9.4 mg/dL (8.4-10.2); Total Bilirubin 0.3 mg/dL (0.2-1.3)
[2019-12-31] MEDS: TRIAMCINOLONE ACET 0.1% OINTMENT 15 GM TUBE TOPICAL SCH ×2 (13:49→20:34)
--- NOTE | 2019-12-31 15:23 | P.PN ---
Subjective Progress Note Date: 12/31/19 Principal diagnosis: Shortness of breath, COPD exacerbation Patient was seen and examined. No acute events overnight. Patient reports continued shortness of breath. States that she has not improved since admission. She is requesting some lotion for dryness of her hands. She denies any chest pain or palpitations. No nausea or vomiting. No fever or chills. Objective - Vital Signs Vital signs: Vital Signs Temp 97.9 F 12/31/19 14:48 Pulse 85 12/31/19 14:48 Resp 19 12/31/19 14:48 BP 119/57 12/31/19 14:48 Pulse Ox 97 12/31/19 14:48 Intake & Output 12/30/19 12/31/19 12/31/19 18:59 06:59 18:59 Intake Total 100 Balance 100 Weight 91.2 kg Intake: Oral 100 Other: Voiding Method Bedside Commode Bedside Commode # Voids 1 1 - Exam General: [non toxic], [no distress], [appears at stated age] Derm: [warm], [dry] Head: [atraumatic], [normocephalic], [symmetric] Eyes: [EOMI], [no lid lag], [anicteric sclera] Mouth: [no lip lesion], [mucus membranes moist] Cardiovascular: [S1S2 reg], [no murmur], [positive DP pulse bilateral], Lungs: [Diffuse wheezing bilateral], [no rhonchi, no rales] , [no accessory muscle use] Abdominal: [soft], [ nontender to palpation], [no guarding], [no appreciable organomegaly] Ext: [no gross muscle atrophy], [no edema], [no contractures], [plaque-like x erosis bilateral thenar eminence hand] Neuro: [no focal neuro deficits] Psych: [Alert], [oriented], [appropriate affect] - Labs CBC & Chem 7: 12/31/19 12:51 12/31/19 12:51 Labs: Abnormal Lab Results - Last 24 Hours (Table) 12/31/19 12/31/19 Range/Units 12:51 12:51 WBC 13.7 H (3.8-10.6) k/uL RDW 16.0 H (11.5-15.5) % Sodium 135 L (137-145) mmol/L Chloride 95 L (98-107) mmol/L Carbon Dioxide 32 H (22-30) mmol/L BUN 36 H (7-17) mg/dL Creatinine 1.13 H (0.52-1.04) mg/dL Glucose 142 H (74-99) mg/dL Microbiology - Last 24 Hours (Table) 12/29/19 18:30 Urine Culture - Final Urine,Voided Assessment and Plan Assessment: Acute on chronic hypoxic respiratory failure COPD exacerbation depending on 4 L NC at home Acute kidney injury Hand rash Diastolic CHF exacerbation with bilateral lower extremity edema Lower extremity cellulitis Urinary retention Uncontrolled hypertension Osteoarthritis with right hip pain Nicotine dependence Anxiety and depression Patient is currently on 5 L NC. Chest x-ray initially showed normal chest on repeat. Echocardiogram shows EF 60-65% with moderate concentric LVH. Plans: Supplemental maintain O2 saturation greater than 92%. Optimize COPD me dications. Discontinue Lasix. Plans: DuoNeb 4 times a day scheduled and as needed for shortness of breath or wheezing. Continue Solu-Medrol. Restart Symbicort. Creatinine 1.13. Likely from forced diuresis. Plans: Avoid nephrotoxins. Encourage hydration by mouth. Repeat BMP tomorrow morning. Possible psoriasis. Plans: Triamcinolone as needed. Echocardiogram as above. Chest x-ray is within normal limits on repeat. Suspect more COPD component. Plans: Discontinue Lasix. Strict intake and output. Daily weights. Ensure adequate blood pressure control. Improving. Edema seen on vascular duplex. Plans: Continue clindamycin IV. Improving. Plans: Intermittent bladder scan as needed. BP 119/57. Plans: Continue amlodipine. Monitor vitals, adjust medications as necessary. Plans: Ensure adequate pain control. Follow PT recommendations. Plans: Offered nicotine patch. Plans: Continue Lexapro. Xanax as needed. [Patient is slow to improve. Optimize COPD medications. Continue IV antibiotics. She is pending clinical improvement. Likely DC in 1-2 days.]
[2019-12-31] MEDS: ALPRAZolam 0.5 MG TAB PO PRN (22:07)
[2020-01-01] MEDS: methylPREDNISolone SOD SUCCI 125 MG/2 ML VIAL IV SCH (07:43)
[2020-01-01] MEDS: NICOTINE 21MG/24HR PATCH TRANSDERM SCH (07:43)
[2020-01-01] MEDS: ESCITALOPRAM 20 MG TAB PO SCH (07:43)
[2020-01-01] MEDS: CLINDAMYCIN 300 MG in DEXTROSE 5% IN WATER 50 ML IVPB SCH ×2 (07:43)
[2020-01-01] MEDS: ALPRAZolam 0.5 MG TAB PO PRN ×2 (07:43→15:07)
[2020-01-01] MEDS: HEPARIN SODIUM,PORCINE 5,000 UNIT/ML 1 ML VIAL SQ SCH (07:43)
[2020-01-01] MEDS: TRIAMCINOLONE ACET 0.1% OINTMENT 15 GM TUBE TOPICAL SCH (07:44)
[2020-01-01] MEDS: amLODIPine 5 MG TAB PO SCH (07:44)
[2020-01-01] MEDS ORDERED: FAMOTIDINE 20 MG TAB PO SCH (09:00)
[2020-01-01 09:12] VITALS: BP 174/71; RESP 18; TEMP 97.6
[2020-01-01] MEDS: SYMBICORT 160-4.5 MCG INHALER INHALATION SCH (09:12)
[2020-01-01] MEDS: IPRATROPIUM-ALBUTEROL 3 ML NEB INHALATION SCH ×2 (09:12→12:15)
--- NOTE | 2020-01-01 10:36 | P.DS ---
Providers Date of admission: 12/29/19 07:17 Expected date of discharge: 01/01/20 Attending physician: Senia Beavers MD Primary care physician: Yarelis Gordon Hospital Course: 74-year-old female with past medical history of COPD oxygen dependent on 4 L, hypertension, nicotine dependence with anxiety and depression presented to the ED for shortness of breath and bilateral lower extremity edema. Apparently, patient is noncompliant with her home oxygen and smokes 2 packs of cigarettes daily. She also had complaints of right hip pain and urinary retention. Coronavirus testing was negative. Chest x-ray was within normal limits. CBC showed leukocytosis of 13.1. Patient was admitted for acute exacerbation of COPD along with bilateral lower extremity edema with concerns for cellulitis and urinary retention. She was started on nebulized treatments [id number] along with IV steroids. Clindamycin IV was started for concerns of cellulitis. She was started on Lasix 40 mg IV twice a day which was increased to 3 times a day for bilateral lower extremity edema. BNP was 542 for which echocardiogram was ordered. Echocardiogram showed EF 60-65% with moderate concentric LVH. Venous duplex ruled out DVT of bilateral lower extremities. Hip x-ray showed no fracture or dislocation. PT was consulted and followed the patient throughout her hospitalization. Patient was agreeable to go home with home PT rather than subacute rehab. She did have an abnormal post void residual of 470 mL on bladder ultrasound. Urinalysis showed moderate blood but was negative for leukocyte esterase or nitrite. Urine culture was negative. Patient had no difficulties with urination at the time of discharge. Patient was seen and examined. No acute events overnight. Patient reports improvement in her breathing. She denies any chest pain, shortness of breath or palpitations. No nausea or vomiting. No fever or chills. Wanting to go home. General: [non toxic], [no distress], [appears at stated age] Derm: [warm], [dry] Head: [atraumatic], [normocephalic], [symmetric] Eyes: [EOMI], [no lid lag], [anicteric sclera] Mouth: [no lip lesion], [mucus membranes moist] Cardiovascular: [S1S2 reg], [no murmur], [positive DP pulse bilateral], Lungs: [Mild end expiratory wheezing bilateral], [no rhonchi, no rales] , [no accessory muscle use] Abdominal: [soft], [ nontender to palpation], [no guarding], [no appreciable organomegaly] Ext: [no gross muscle atrophy], [no edema], [no contractures], [plaque-like xerosis bilateral thenar eminence hand] Neuro: [no focal neuro deficits] Psych: [Alert], [oriented], [appropriate affect] Acute on chronic hypoxic respiratory failure COPD exacerbation depending on 4 L NC at home Acute kidney injury Hand rash Diastolic CHF exacerbation with bilateral lower extremity edema Lower extremity cellulitis Urinary retention Uncontrolled hypertension Osteoarthritis with right hip pain Nicotine dependence Anxiety and depression Patient is currently on 4 L NC. Chest x-ray initially showed normal chest on repeat. Echocardiogram shows EF 60-65% with moderate concentric LVH. Plans: Supplemental maintain O2 saturation greater than 92%. Optimize COPD medica tions. Discontinue Lasix. Plans: DuoNeb 4 times a day scheduled and as needed for shortness of breath or wheezing. Transition Solu-Medrol to prednisone on discharge. Restart Symbicort. Creatinine 1.13. Likely from forced diuresis. Plans: Avoid nephrotoxins. Encourage hydration by mouth. Possible psoriasis. Plans: Triamcinolone as needed. Echocardiogram as above. Chest x-ray is within normal limits on repeat. Suspect more COPD component. Plans: Discontinue Lasix. Strict intake and output. Daily weights. Ensure adequate blood pressure control. Improving. Edema seen on vascular duplex. Plans: Continue clindamycin by mouth on discharge. Improving. Plans: Intermittent bladder scan as needed. BP 174/71. Plans: Continue amlodipine. Monitor vitals, adjust medications as necessary. Plans: Ensure adequate pain control. Follow PT recommendations. Plans: Offered nicotine patch. Plans: Continue Lexapro. Xanax as needed. [Patient has improved and breathing is back to baseline. Continue clindamycin for a total 7 days for cellulitis. Anticipated DC today. Advised on smoking cessation. This complex discharge took about 35 minutes to complete.] Pertinent Studies: Chest x-ray, venous duplex, hip x-ray, bladder ultrasound, echocardiogram Patient Condition at Discharge: Stable Plan - Discharge Summary Discharge Rx Participant: No New Discharge Prescriptions: New Amoxic-Pot Clav 875-125Mg [Augmentin 875-125] 1 tab PO Q12HR #20 tablet Furosemide [Lasix] 40 mg PO BID #6 tablet Ipratropium-Albuterol Nebulize [Duoneb 0.5 mg-3 mg/3 ml Soln] 3 ml INHALATION RT-QID #90 neb Ipratropium-Albuterol Nebulize [Duoneb 0.5 mg-3 mg/3 ml Soln] 3 ml INHALATION RT-TID PRN ml PRN Reason: Shortness Of Breath Or Wheezing predniSONE See Taper PO DIRECTED #30 tab Continue Budesonide/Formoterol Fumarate [Symbicort 160-4.5 Mcg Inhaler] 2 puff INHALATION RT-BID Escitalopram [Lexapro] 20 mg PO DAILY amLODIPine [Norvasc] 5 mg PO DAILY Albuterol Inhaler [Ventolin Hfa Inhaler] 2 puff INHALATION RT-QID Spironolactone 50 mg PO DAILY Discharge Medication List Budesonide/Formoterol Fumarate [Symbicort 160-4.5 Mcg Inhaler] 2 puff INHALATION RT-BID 07/20/19 [History] Escitalopram [Lexapro] 20 mg PO DAILY 07/20/19 [History] amLODIPine [Norvasc] 5 mg PO DAILY 07/20/19 [History] Albuterol Inhaler [Ventolin Hfa Inhaler] 2 puff INHALATION RT-QID 12/29/19 [History] Amoxic-Pot Clav 875-125Mg [Augmentin 875-125] 1 tab PO Q12HR #20 tablet 12/29/19 [Rx] Furosemide [Lasix] 40 mg PO BID #6 tablet 12/29/19 [Rx] Spironolactone 50 mg PO DAILY 12/29/19 [History] Ipratropium-Albuterol Nebulize [Duoneb 0.5 mg-3 mg/3 ml Soln] 3 ml INHALATION RT-QID #90 neb 01/01/20 [Rx] Ipratropium-Albuterol Nebulize [Duoneb 0.5 mg-3 mg/3 ml Soln] 3 ml INHALATION RT-TID PRN ml 01/01/20 [Rx] predniSONE See Taper PO DIRECTED #30 tab 01/01/20 [Rx] Follow up Appointment(s)/Referral(s): Yarelis Gordon DO [Primary Care Provider] - 1-2 days Patient Instructions/Handouts: Leg Edema (ED) Activity/Diet/Wound Care/Special Instructions: Diet: Low-salt Follow-up PCP within 3 days of discharge. Take all medications as advised. Please stop smoking. Come back to the ED for worsening shortness of breath, chest pain, palpitations, dizziness. Discharge Disposition: HOME SELF-CARE
[2020-01-01 12:17] VITALS: PULSE 80
[2020-01-01] MEDS: MORPHINE SULFATE 4 MG/ML SYRINGE IVP PRN (15:07)
== END 2020-01-01 15:34 | disposition home health service (06) | DRG 190 ==
LOC: EC 05:01 → 4SSUR 07:17
PROVIDERS: ADMIT Internal Medicine; ATTEND Internal Medicine
DX: J44.1 Chronic obstructive pulmonary disease with (acute) exacerbation (principal); I50.33 Acute on chronic diastolic (congestive) heart failure; J96.21 Acute and chronic respiratory failure with hypoxia; L03.115 Cellulitis of right lower limb; L03.116 Cellulitis of left lower limb; N17.9 Acute kidney failure, unspecified; I11.0 Hypertensive heart disease with heart failure; E87.5 Hyperkalemia; F10.21 Alcohol dependence, in remission; F17.210 Nicotine dependence, cigarettes, uncomplicated; F32.9 Major depressive disorder, single episode, unspecified; F41.9 Anxiety disorder, unspecified; G89.29 Other chronic pain; M54.5 Low back pain; R21 Rash and other nonspecific skin eruption; M16.11 Unilateral primary osteoarthritis, right hip; R33.9 Retention of urine, unspecified; Z20.828 Contact with and (suspected) exposure to other viral communicable diseases; Z66 Do not resuscitate; L30.9 Dermatitis, unspecified; Z99.81 Dependence on supplemental oxygen; Z91.19 Patient's noncompliance with other medical treatment and regimen; Z87.01 Personal history of pneumonia (recurrent); Z79.51 Long term (current) use of inhaled steroids; Z79.899 Other long term (current) drug therapy; Z88.1 Allergy status to other antibiotic agents; Z88.8 Allergy status to other drugs, medicaments and biological substances; Z81.1 Family history of alcohol abuse and dependence; Z82.49 Family history of ischemic heart disease and other diseases of the circulatory system
CPT/HCPCS: 36415; 71045; 73502; 76857; 80053; 80061; 81001; 83036; 83605; 83735; 83880; 84132; 84443; 84484; 85025; 85027; 85610; 85730; 87086; 87635; 93005; 93306; 93922; 93970; 94640; 96374; 96375; 99291